=== PATIENT | female | born 1980 | race Two or more races ===

== ENCOUNTER 2023-07-16 14:47 | Inpatient (IN) | payer OTHER, SELFPAY ==
--- NOTE | ~2023-07-16 | MR_ITS ---
EXAMINATION: MR BRAIN WITHOUT AND WITH CONTRAST CLINICAL INFORMATION: MS flare. COMPARISON: None available. TECHNIQUE: Multiplanar, multisequence imaging of the brain was performed before and after the intravenous administration of 9 mL of Gadavist. FINDINGS: There are numerous demyelinating lesions throughout the brain parenchyma. Patchy and confluent lesions with T2 hyperintense signal abnormality are present in the periventricular white matter of both cerebral hemispheres. There are chronic T1 hypointense lesions along the callosal-septal interface posteriorly, best seen on sagittal imaging. A 1.4 cm T2 hyperintense lesion in the left frontal white matter demonstrates mild reduced diffusivity, though without corresponding enhancement. An additional smaller 0.6 cm lesion demonstrates reduced diffusivity as well. There is a third 0.7 cm lesion at the interface between the lateral zuleima and right middle cerebellar peduncle with restricted diffusion, but no associated enhancement. There is a small 0.7 x 0.3 cm linear enhancing lesion in the left frontal white matter at the level of the roofs of the lateral ventricles. A second 0.5 x 0.3 cm enhancing lesion is visible slightly more inferiorly in the left frontal white matter as well. There are scattered nonenhancing lesions in the left cerebellar white matter, in the superior cerebellar peduncles, and elsewhere in the frontoparietal white matter of both cerebral hemispheres. A small nonenhancing lesion is also visible in the mesial left temporal lobe. No diffusion abnormalities are identified to suggest an acute infarct. The ventricles are normal in size. No mass effect or midline shift is seen. No extra-axial fluid collections are seen. There is no abnormal leptomeningeal enhancement. The gradient refocused acquisition is normal. The craniovertebral junction and marrow signal are normal. The major intracranial flow voids at the level of the eagle of [place] are preserved. The dural venous sinus flow voids are maintained. The mastoid air cells are well aerated. There is mucosal thickening along the floor of the right maxillary antrum. MR/MR head/brain wo/w con IMPRESSION: Approximately two subcentimeter enhancing lesions in the left frontal white matter, consistent with active inflammation. Two additional lesions in the left frontal white matter and a solitary subcentimeter lesion in the right middle cerebellar peduncle, all of which demonstrate reduced diffusivity and are indicative for acute inflammatory lesions. Numerous scattered nonenhancing lesions throughout the brain parenchyma as described.
--- NOTE | ~2023-07-16 | CT_ITS ---
EXAMINATION: CT HEAD WITHOUT CONTRAST CLINICAL INFORMATION: Blurry vision, dizziness COMPARISON: None available. TECHNIQUE: Contiguous axial imaging was performed from the skull base to vertex without intravenous administration of contrast. This CT examination was performed using dose optimization techniques as appropriate, variously including the following: *Automated exposure control *Adjustment of mA and/or kV according to patient size (this includes techniques or standardized protocols for targeted exams where dose is matched to indication/reason for exam; i.e. extremities or head) *Use of iterative reconstruction technique DLP: 646 mGy-cm FINDINGS: There is no evidence of acute intracranial hemorrhage or edematous territorial infarction. No abnormal mass effect or midline shift is seen. Valentine to white matter differentiation is well preserved. No abnormal extra-axial fluid collections are identified. The ventricles are normal in size. No abnormal attenuation in the brain parenchyma. No acute calvarial fracture.. Paranasal sinuses and mastoid air cells are well-aerated. CT/CT head/brain wo IV con IMPRESSION: No CT evidence of acute intracranial hemorrhage or edematous territorial infarction.
[2023-07-16 15:24] VITALS: BP 149/78; PULSE 96; RESP 14; TEMP 36.9; O2SAT 98; BMI 29.3
--- NOTE | 2023-07-16 15:27 | ED_ITS ---
HPI - General Adult General Chief complaint: Eye Problems Stated complaint: MS flare up Time Seen by Provider: 07/16/23 18:46 Source: patient Mode of arrival: ambulatory Limitations: no limitations History of Present Illness HPI narrative: Patient's history of multiple sclerosis 2016 on Tecfidera 240 mg p.o. every other day moved to [place] from [place] does not have any PCP or neurologist , comes here for last 2 weeks with strange vision changes in the left eye sees double when she look all the way to the left also feeling that her gait is more unsteady than before. No loss of vision focal deficits no significant headache no fever no chills patient had last MRI was 2018 at that time patient was prescribed prednisone Related Data Allergies Allergy/AdvReac Type Severity Reaction Status Date / Time Unable to Assess Allergy Verified 07/16/23 15:29 Review of Systems 2 Review of Systems: Yes all other systems are reviewed and are negative PMFSH Past Medical History Medical History (Updated 07/17/23 @ 01:19 by Charles Bowen MD) Multiple sclerosis Social History Social History Advance Directives: No Advance Directives Information Provided: No Do you have a plan to hurt others: No Plan Physical Exam ED Vital Signs: Vital Signs - 24 hr 07/16/23 15:24 07/16/23 18:00 07/16/23 21:50 Temperature 98.4 F 98.3 F 98.4 F Pulse Rate 96 82 72 Respiratory Rate 14 19 16 Blood Pressure 149/78 H 152/79 H 135/65 Pulse Oximetry 98 100 99 Oxygen Delivery Method Room Air Room Air Room Air 07/17/23 00:02 Temperature 98.4 F Pulse Rate 70 Respiratory Rate 16 Blood Pressure 132/57 L Pulse Oximetry 96 Oxygen Delivery Method Room Air BMI result Body Mass Index 29.3 Appearance: Alert. Oriented X3. No acute distress. Eyes: PERRLA, No Nystagmus diplopia on left gaze visual hawkins normal ENT: Pharynx normal. Oral Mucosa moist Neck: Normal inspection. Neck supple. CVS: Normal heart rate and rhythm. Pulses normal. Respiratory: No respiratory distress. Equal air entry bilateral, no wheezing/rales/rhonchi Abdomen: Soft and nontender. Bowel sounds are present, no mass palpable, no CVA tenderness Skin: Skin warm and dry. Normal skin color. Normal skin turgor. Extremities: No lower extremity edema. No calf tenderness Neuro: Oriented X 3. No motor deficit. Patchy sensory deficit lower extremities unsteady gait No cerebellar signs , cranial nerves II-XII intact Course Course Course Narrative: RME performed by Ivon Ji PA-C. Patient is a 43 year old assigned female at presenting to the emergency department with increased blurry vision. Patient states that she has a history of MS and is on medication for it but over the last week she has been having increased blurry vision / trouble focusing on things. Patient is new to the area from [facility] and does not have a neurologist or PCP but is still taking her MS medication. Detailed physical exam and review of systems are deferred to the steel tester. EKG, labs, imaging, and swabs ordered. Patient placed back in the waiting room pending room availability and results. Medications Administered Generic Name Dose Route Start Last Admin Trade Name Freq PRN Reason Stop Dose Admin Nicotine Polacrilex 2 mg 07/16/23 23:35 07/16/23 23:56 Nicotine Polacrilex 2 Mg Gum BUCCAL 2 mg Q2H PRN Administration Nicotine Cravings Discontinued Medications Generic Name Dose Route Start Last Admin Trade Name Freq PRN Reason Stop Dose Admin Gadobutrol 10 ml 07/16/23 21:28 07/16/23 21:30 Gadobutrol 10 Ml Vial IVPUSH 07/16/23 21:29 9 ml ONCE ONE Administration Methylprednisolone Sodium 66 mls @ 66 mls/hr 07/16/23 23:06 07/17/23 00:59 Succinate 1,000 mg/ Sodium IV 07/17/23 00:05 Infused Chloride ONCE ONE Infusion Medical Decision Making Medical Decision Making [facility] Narrative: Patient's history of multiple sclerosis with multiple acute inflammatory lesions MRI with visual changes and worsening of the gait will start on dose of 1000 mg of Solu-Medrol. Case discussed Dr. Rosenthal will follow the patient the floor Differential Diagnosis Differential Diagnoses: The differential diagnosis associated with the presentation includes CVA/MS/brain tumor Admission/Observation Consideration of admission/observation: Escalation of care including admission/observation considered Consult Healthcare Provider Management of the patient was discussed with: Hospitalist Lab Data [facility] Lab Attestation statement: I reviewed the patient's lab results. 07/16/23 16:08 07/16/23 16:08 Labs: Lab Results 07/16/23 07/16/23 Range/Units 16:08 19:13 WBC 5.2 (4.8-10.8) X10*3/uL RBC 4.48 (4.20-5.50) X10*6/uL Hgb 14.5 (12.0-16.0) g/dl Hct 41.1 (37.0-47.0) % MCV 91.7 (80.0-98.0) fL MCH 32.4 (27.0-33.0) pg MCHC 35.3 H (31.0-35.0) g/dl RDW 12.4 (11.0-16.0) % Plt Count 188 (160-400) X10*3/uL MPV 11.1 (9.4-12.3) fL Immature Gran % (Auto) 0.4 (0.0-0.4) % Neut % (Auto) 81.6 H (45-73) % Lymph % (Auto) 9.0 L (20-40) % Christian % (Auto) 6.7 (2-11) % Eos % (Auto) 1.7 (0-4) % Baso % (Auto) 0.6 (0-2) % Lymph # (Auto) 0.5 L (1.2-4.9) X10*3/uL Christian # (Auto) 0.4 (0.1-1.2) X10*3/uL Eos # (Auto) 0.1 (0.0-0.4) X10*3/uL Baso # (Auto) 0.0 (0.0-0.2) X10*3/uL Abs Immat Gran (auto) 0.02 (0.00-0.03) X10*3/uL Absolute Neuts (auto) 4.3 (2.0-8.3) x10*3/uL Absolute Nucleated RBC 0.000 (0.0-0.012) X10*3/uL Nucleated RBC % (auto) 0.0 (0.0-0.2) /100WBC PT 12.3 (11.1-13.3) SEC INR 1.0 (0.9-1.1) APTT 28.5 (26.0-36.8) SEC Sodium 141 (135-145) mmol/L Potassium 4.7 (3.3-5.1) mmol/L Chloride 108 (96-108) mmol/L Carbon Dioxide 25 (22-29) mmol/L Anion Gap 13 (12-20) BUN 10 (9-16) mg/dL Creatinine 0.93 (0.5-1.4) mg/dL Estim Creat Clear Calc 93.2 Estimated GFR > 60 Random Glucose 90 (60-115) mg/dL Calcium 9.7 (8.4-10.2) mg/dL Magnesium 2.3 (1.6-2.6) mg/dL Total Bilirubin 0.6 (0.0-1.0) mg/dL AST 11 (5-31) U/L ALT 10 (0-31) U/L Alkaline Phosphatase 89 (39-117) U/L C-Reactive Protein 0.16 (< or = 0.50) mg/dL Total Protein 7.5 (6.5-8.0) g/dL Albumin 4.3 (3.5-5.0) g/dL Urine Color Yellow Urine Appearance Clear Urine pH 6.5 (5.0-9.0) Ur Specific [place] <= 1.005 (1.005-1.025) Urine Protein Negative (Neg-Trace) mg/dL Urine Glucose (UA) Negative (Negative) mg/dL Urine Ketones Negative (Negative) mg/dL Urine Blood Large (3+) H (Negative) Urine Nitrite Negative (Negative) Ur Leukocyte Esterase Trace H (Negative) Urine RBC 3-5 H (0-2) /HPF Urine WBC 0-5 (0-5) /HPF Ur Squamous Epith Cells 3-5 (0-2) /HPF Urine Bacteria None Seen (None Seen) Hyaline Casts 0-2 (0-2) /LPF Influenza Type A (PCR) NEGATIVE (Negative) Influenza Type B (PCR) NEGATIVE (Negative) RSV RNA Qual (PCR) NEGATIVE (Negative) SARS-CoV-2 RNA (RT-PCR) NEGATIVE (Negative) Radiology Impression Discussion of test interpretation with radiology: I have reviewed the radiologist's reading. Radiologist Impression: MR/MR head/brain wo/w con IMPRESSION: Approximately two subcentimeter enhancing lesions in the left frontal white matter, consistent with active inflammation. Two additional lesions in the left frontal white matter and a solitary subcentimeter lesion in the right middle cerebellar peduncle, all of which demonstrate reduced diffusivity and are indicative for acute inflammatory lesions. Numerous scattered nonenhancing lesions throughout the brain parenchyma as descr Discharge Plan Discharge Clinical Impression: Multiple sclerosis exacerbation Patient Disposition: Admitted As Inpatient Print Language: Arabic
[2023-07-16 16:13] LABS: MANUAL DIFF FLAG NO
[2023-07-16 16:18] LABS: Basophils Percent Auto 0.6 % (0-2); Eosinophils Absolute Auto 0.1 X10*3/uL (0.0-0.4); Eosinophils Percent Auto 1.7 % (0-4); Hematocrit 41.1 % (37.0-47.0); Hemoglobin 14.5 g/dl (12.0-16.0); Imm Gran Abs Auto 0.02 X10*3/uL (0.00-0.03); Imm Gran Pct Auto 0.4 % (0.0-0.4); Lymphocytes Absolute Auto 0.5 X10*3/uL (1.2-4.9); Mean Corpuscular HGB Conc 35.3 g/dl (31.0-35.0); Mean Corpuscular Hemoglobin 32.4 pg (27.0-33.0); Mean Corpuscular Volume 91.7 fL (80.0-98.0); Mean Platelet Volume 11.1 fL (9.4-12.3); Monocytes Absolute Auto 0.4 X10*3/uL (0.1-1.2); Monocytes Percent Auto 6.7 % (2-11); Neutrophils Absolute Auto 4.3 x10*3/uL (2.0-8.3); Neutrophils Percent Auto 81.6 % (45-73); Platelet Count 188 X10*3/uL (160-400); Red Blood Count 4.48 X10*6/uL (4.20-5.50); Red Cell Distribution Width 12.4 % (11.0-16.0); White Blood Count 5.2 X10*3/uL (4.8-10.8)
[2023-07-16 16:19] LABS: Prothrombin Time 12.3 SEC (11.1-13.3)
[2023-07-16 16:22] LABS: Partial Thromboplastin Time 28.5 SEC (26.0-36.8)
[2023-07-16 16:29] LABS: Alanine Aminotransferase 10 U/L (0-31); Albumin Level 4.3 g/dL (3.5-5.0); Alkaline Phosphatase 89 U/L (39-117); Anion Gap 13 (12-20); Aspartate Amino Transferase 11 U/L (5-31); Bilirubin Total 0.6 mg/dL (0.0-1.0); Blood Urea Nitrogen 10 mg/dL (9-16); Calcium 9.7 mg/dL (8.4-10.2); Carbon Dioxide 25 mmol/L (22-29); Chloride 108 mmol/L (96-108); Creatinine Clr Calc Pharmacy 93.2; Estimated Glomerular Filt Rate > 60; Glucose Random 90 mg/dL (60-115); Magnesium 2.3 mg/dL (1.6-2.6); Potassium 4.7 mmol/L (3.3-5.1); Sodium 141 mmol/L (135-145); Total Protein 7.5 g/dL (6.5-8.0)
[2023-07-16 17:02] LABS: Influenza A PCR NEGATIVE (Negative); Influenza B PCR NEGATIVE (Negative); Resp Syncy Virus RNA Qual PCR NEGATIVE (Negative); SARS COV2 PCR INHOUSE NEGATIVE (Negative)
[2023-07-16 18:00] VITALS: BP 152/79; PULSE 82; RESP 19; TEMP 36.8; O2SAT 100
[2023-07-16 19:28] LABS: Appearance Urine Clear; Color Urine Yellow; Glucose Urine UA Negative (Negative); Leukocyte Esterase Urine Trace (Negative); Nitrite Urine Negative (Negative); PH 6.5 (5.0-9.0); Specific Gravity - Urine <= 1.005 (1.005-1.025); UMIC TRIGGER UACC YES; Urine Blood Large (3+) (Negative); Urine Ketones Negative (Negative); Urine Protein Negative (Neg-Trace)
[2023-07-16 19:45] LABS: Bacteria Urine None Seen (None Seen); Hyaline Casts Urine 0-2 /LPF (0-2); WBC Urine 0-5 /HPF (0-5)
[2023-07-16 20:03] LABS: C Reactive Protein 0.16 mg/dL (< or = 0.50)
--- NOTE | 2023-07-16 20:29 | PC.NURSE ---
pt to MRI with fire alarm technician
[2023-07-16] MEDS: gadobutroL 10 ML VIAL IVPUSH (21:30)
--- NOTE | 2023-07-16 21:47 | PC.NURSE ---
Pt back from MRI at this time.
[2023-07-16 21:50] VITALS: BP 135/65; PULSE 72; RESP 16; TEMP 36.9; O2SAT 99
[2023-07-16] MEDS: Nicotine Polacrilex 2 MG GUM BUCCAL (23:56)
[2023-07-16] MEDS: methylPREDNISolone Sod Succ 1,000 MG in 0.9 % Sodium Chloride 50 ML 66 MG IV (23:56)
--- NOTE | 2023-07-16 23:56 | PC.NURSE ---
Solumedrol infusion initiated at this time. Pt given nicotine gum, toiletries per request. Denies any other needs at this time.
[2023-07-17 00:02] VITALS: BP 132/57; PULSE 70; RESP 16; TEMP 36.9; O2SAT 96
--- NOTE | 2023-07-17 01:02 | PC.NURSE ---
Solumedrol infusion complete at this time. Pt states she feels her vision is better at this time. Denies any other needs currently.
[2023-07-17] MEDS: Ibuprofen 600 MG TABLET PO ×2 (01:54→18:33)
[2023-07-17 02:41] VITALS: BP 126/75; PULSE 85; RESP 16; TEMP 36.9; O2SAT 96
--- NOTE | 2023-07-17 04:23 | PC.NURSE ---
Pt requesting to wear her own clothes instead of hospital gown, per Dr. Steve Flores, she is okay to wear her own clothing while in the hospital. Pt denies any other needs at this time.
[2023-07-17 06:10] VITALS: BP 135/75; PULSE 75; RESP 16; TEMP 36.9; O2SAT 97
--- NOTE | 2023-07-17 06:18 | PM.IMHP ---
History of Present Illness Date of Service: 07/17/23 Attending physician on admission: Behzad Flores Chief Complaint: Dizziness, visual issues Shanika Hinds is a very pleasant 43 years old woman with past medical history significant for MS diagnosed in 2016 presents to the emergency department complaining of acute onset of dizziness and feeling off balance associated with blindness in the peripheral area of her vision. Denied any associated headache, nausea or vomiting. She also denied numbness, focal weakness or walking difficulty. Denied any cardiopulmonary, gastrointestinal or genitourinary symptoms. She has been taking dimethyl fumarate (Tecfidera) 240 mg PO every other day for MS; instead of 240 mg p.o. b.i.d. (because her LFTs were elevated). She vapes. Denies tobacco smoking, alcohol abuse or illicit drug use. In the ED, she was found to have normal vital signs. Blood workup including CBC and CMP are unremarkable. Viral testing for COVID-19, RSV and influenza is negative. She underwent a head CT scan that showed no acute intracranial abnormalities. Brain MRI showed and has a lesions in the left frontal white matter and right middle cerebral parenchymal lesions consistent with acute inflammation. ED tx: Solu-Medrol 1 g IV. Ibuprofen 600 mg PO Review of Systems Review of Systems: All 12 systems were reviewed and normal except as noted in HPI. [facility] Medical History (Updated 07/17/23 @ 01:19 by Charles Bowen MD) Multiple sclerosis Social History Advance Directives: No Advance Directives Information Provided: No Do you have a plan to hurt others: No Plan Meds Allergies Allergy/AdvReac Type Severity Reaction Status Date / Time Unable to Assess Allergy Verified 07/16/23 15:29 Active Medications: Current Medications Methylprednisolone Sodium Succinate (Methylprednisolone Sod Succ 125 Mg/2 Ml Vial) 1,000 mg IVPUSH DAILY [facility] Nicotine Polacrilex (Nicotine Polacrilex 2 Mg Gum) 2 mg BUCCAL Q2H PRN PRN Reason: Nicotine Cravings Last Admin: 07/16/23 23:56 Dose: 2 mg Sodium Chloride (0.9 % Sodium Chloride Flush 3 Ml Syringe) 3 ml IVFLUSH QSHIFT [facility] Home meds: Dimethyl fumarate (Tecfidera) 240 mg PO every other day Oral contraception Physical Exam Vital Signs and Narrative: Vital Signs: Last Vital Signs Temp 98.5 F 07/17/23 06:10 Pulse 75 07/17/23 06:10 Resp 16 07/17/23 06:10 BP 135/75 07/17/23 06:10 Pulse Ox 97 07/17/23 06:10 O2 Del Method Room Air 07/17/23 06:10 BMI result Body Mass Index 29.3 Constitutional - Awake and Alert, No apparent distress. HEENT - PERRLA, EOMI Heart - S1S2, RRR. Lungs - Normal lung expansion, Normal respiratory effort, No respiratory distress, CTA bilaterally Abdomen - NT / ND; +BS; No rebound or guarding Extremities - No calf tenderness bilaterally, no swelling Musculoskeletal - Normal inspection, normal ROM Skin - Warm/Dry Neurological - Alert & oriented x3, CN II-XII in tact, 5/5 strength BUE and BLE Psychological - Appropriate affect Results Labs 07/16/23 16:08 07/16/23 16:08 Labs: Laboratory Results - last 24 hr 07/16/23 07/16/23 16:08 19:13 MCV 91.7 MCH 32.4 MCHC 35.3 H RDW 12.4 Plt Count 188 MPV 11.1 Immature Gran % (Auto) 0.4 Neut % (Auto) 81.6 H Lymph % (Auto) 9.0 L [place] % (Auto) 6.7 Eos % (Auto) 1.7 Baso % (Auto) 0.6 Lymph # (Auto) 0.5 L [place] # (Auto) 0.4 Eos # (Auto) 0.1 Baso # (Auto) 0.0 Abs Immat Gran (auto) 0.02 Absolute Neuts (auto) 4.3 Absolute Nucleated RBC 0.000 Nucleated RBC % (auto) 0.0 PT 12.3 INR 1.0 APTT 28.5 Anion Gap 13 Estim Creat Clear Calc 93.2 Estimated GFR > 60 Random Glucose 90 Calcium 9.7 Magnesium 2.3 Total Bilirubin 0.6 AST 11 ALT 10 Alkaline Phosphatase 89 C-Reactive Protein 0.16 Total Protein 7.5 Albumin 4.3 Urine Color Yellow Urine Appearance Clear Urine pH 6.5 Ur Specific [place] <= 1.005 Urine Protein Negative Urine Glucose (UA) Negative Urine Ketones Negative Urine Blood Large (3+) H Urine Nitrite Negative Ur Leukocyte Esterase Trace H Urine RBC 3-5 H Urine WBC 0-5 Ur Squamous Epith Cells 3-5 Urine Bacteria None Seen Hyaline Casts 0-2 Influenza Type A (PCR) NEGATIVE Influenza Type B (PCR) NEGATIVE RSV RNA Qual (PCR) NEGATIVE SARS-CoV-2 RNA (RT-PCR) NEGATIVE Imaging Radiologist's Impressions: Impressions Head CT 07/16/23 16:02 IMPRESSION: No CT evidence of acute intracranial hemorrhage or edematous territorial infarction. Brain MRI 07/16/23 21:40 IMPRESSION: Approximately two subcentimeter enhancing lesions in the left frontal white matter, consistent with active inflammation. Two additional lesions in the left frontal white matter and a solitary subcentimeter lesion in the right middle cerebellar peduncle, all of which demonstrate reduced diffusivity and are indicative for acute inflammatory lesions. Numerous scattered nonenhancing lesions throughout the brain parenchyma as described. Assessment and Plan (1) Multiple sclerosis exacerbation: Status: Acute Plan Shanika Hinds is a 43 y/o woman with PMHx significant for MS diagnosed in 2016 presents with: Multiple sclerosis exacerbation, symptoms improving after IV steroids given. Admit to hospitalist service. Continue Solu-Medrol 1 g IV daily. Neurology consult -case has been discussed with neurologist on-call by ED provider. Code status: Full DVT prophylaxis: Low risk. Early ambulation. Quality Stroke Does the patient have a stroke diagnosis?: No VTE Prior VTE?: No VTE Risk Level:: Medical - low VTE Device Contraindication: Treatment Not Indicated VTE Drug Contraindication: Treatment Not Indicated
[2023-07-17 08:00] VITALS: BP 154/74; PULSE 98; RESP 18; TEMP 36.4; O2SAT 97
[2023-07-17] MEDS: Omeprazole 20 MG CAPSULE.DR PO ×2 (09:50→16:19)
[2023-07-17] MEDS: 0.9 % Sodium Chloride Flush 3 ML SYRINGE IVFLUSH ×3 (09:50→21:20)
--- NOTE | 2023-07-17 09:59 | PHA.MEDREC ---
Addendum entered by Ashley Sadler [facility] 07/17/23 12:19: Received patients own Tecfidera, medication is normally prescribed as BID. Patient is from home so the only way to verify how patient takes it, is to ask. Send up pharmacy data analyst to ask patient again how they take their Tecfidera. Patient stated again that she only takes it every other day and that she took one this in morning (prior to verification of pharmacy). Original Note: Pharmacy Consult ? Medication Reconciliation Pharmacy has completed the medication reconciliation. spoke with patient to confirm medications. She has the Tecfidera with her and reports that she is due for a dose today (takes every other day).
--- NOTE | 2023-07-17 10:00 | P.CNNE_ITS ---
History of Present Illness Data of Consult Service Date: 07/17/23 Primary Care Provider: None Physician HPI Reason for consult: Multiple sclerosis exacerbation 43 years old woman from [place] who has been living here since 2021. She provided her own history stating that she was diagnosed with multiple sclerosis after she had symptoms of right-sided numbness and weakness in 2016 and had investigations of MRI of brain and spinal fluid analysis. She was treated with steroid and then started on Tecfidera, which she has continued to take. But, she has been here for last 2 years without proper access to insurance and medical care and has been using smaller and less frequent does, 1 tablet [id number] instead of 1 twice a day. She came to hospital for symptoms of blurred vision that started few days ago. Vision on both sides of eyes was blurred like tunnel vision. She denied seeing double or having any headache. There was no associated speech or language difficulty or numbness or paralysis. She has felt little unsteady but that she attributed to her knee problem. There was no recent cold or flu-like illness. She a [place] and as applied for immigration and was waiting for her immigration status to clear. Review of Systems 2 Review of Systems: No cold or flu-like illness PMFSH Past Medical History Medical History (Updated 07/17/23 @ 01:19 by Charles Bowen MD) Multiple sclerosis Social History Social History Household Members: Spouse Housing: House Patient Tobacco Use Status: Never used Tobacco Meds Allergies Allergy/AdvReac Type Severity Reaction Status Date / Time Unable to Assess Allergy Verified 07/16/23 15:29 Active Medications: Current Medications Methylprednisolone Sodium Succinate 1,000 mg/ Sodium Chloride 66 mls @ 66 mls/hr IV DAILY [facility] Nicotine Polacrilex (Nicotine Polacrilex 2 Mg Gum) 2 mg BUCCAL Q2H PRN PRN Reason: Nicotine Cravings Last Admin: 07/16/23 23:56 Dose: 2 mg Omeprazole (Omeprazole 20 Mg Capsule.) 20 mg PO BID@0630,1630 [facility] Last Admin: 07/17/23 09:50 Dose: 20 mg Sodium Chloride (0.9 % Sodium Chloride Flush 3 Ml Syringe) 3 ml IVFLUSH QSHIFT [facility] Last Admin: 07/17/23 09:50 Dose: 3 ml Home Medications ?Medication ?Instructions ?Recorded ?Confirmed ?Last Taken ?Type dimethyl fumarate 240 mg 240 mg PO Q OTHER DAY 07/17/23 07/17/23 07/15/23 History capsule,delayed release (Tecfidera) ibuprofen 200 mg tablet 400 - 800 mg PO DAILY PRN 07/17/23 07/17/23 Unknown History headache/migraine norethindrone (contraceptive) 0.35 0.35 mg PO DAILY 07/17/23 07/17/23 07/16/23 History mg tablet (Eileen) Physical Exam 2 Vital Signs: Vital Signs: Last Vital Signs Temp 97.5 F 07/17/23 08:00 Pulse 98 07/17/23 08:00 Resp 18 07/17/23 08:00 BP 154/74 H 07/17/23 08:00 Pulse Ox 97 07/17/23 08:00 O2 Del Method Room Air 07/17/23 08:00 BMI result Body Mass Index 29.3 Neuro: Other: She is alert and awake with normal spontaneity of speech fluency comprehension and affect. Visual hawkins are full. Pupils are about 3-4 mm round reactive to light. Red color perception is same in both eyes. Face is symmetrical. There is no pronator drift. Deep tendon reflexes are trace to 1+ with flexor plantars. She is able to get up and walk around but has difficulty doing tandem gait. Speech is normal. Results Labs 07/16/23 16:08 07/16/23 16:08 Labs: Short CBC 07/16/23 Range/Units 16:08 WBC 5.2 (4.8-10.8) X10*3/uL Hgb 14.5 (12.0-16.0) g/dl Hct 41.1 (37.0-47.0) % Plt Count 188 (160-400) X10*3/uL BMP 07/16/23 16:08 Sodium 141 Potassium 4.7 Chloride 108 Carbon Dioxide 25 BUN 10 Creatinine 0.93 Calcium 9.7 Liver Function 07/16/23 Range/Units 16:08 Total Bilirubin 0.6 (0.0-1.0) mg/dL AST 11 (5-31) U/L ALT 10 (0-31) U/L Alkaline Phosphatase 89 (39-117) U/L Albumin 4.3 (3.5-5.0) g/dL Urine 07/16/23 Range/Units 19:13 Urine Color Yellow Urine Appearance Clear Urine pH 6.5 (5.0-9.0) Ur Specific [place] <= 1.005 (1.005-1.025) Urine Protein Negative (Neg-Trace) mg/dL Urine Glucose (UA) Negative (Negative) mg/dL Head CT revealed multiple areas of hypodensity specially in left cerebellar peduncle in left hemisphere. MRI of brain revealed same lesions and more with some on left side with restricted diffusion. These to lesions are also enhancing with gadolinium. Assessment and Plan (1) Multiple sclerosis exacerbation: Status: Acute Remitting relapsing multiple sclerosis while she is in exacerbation at this time. Unfortunately, she has limited access to medical care and medications. My impression is that she required stronger efficacy drugs, which might be difficult to obtain without proper health insurance. In any case, I recommend treating her with Solu-Medrol 1 g a day for 5 days and then starting her on prednisone taper starting with 60 mg a day and tapering it off in 10-14 days. She has medicine that she obtain from [place], Tecfidera, she should take it 1 twice a day at least until she has proper medical insurance. Procedures Date of Service Date of Service: 07/17/23
--- NOTE | 2023-07-17 10:42 | MHC.CM.PN ---
Patient is from home w/ . Functionally independent. Denies use of DME or services. No PCP. [facility] brochure provided. Patient completed HCP, naming Norbert Adkins as HCA. DP: Goal is home self care, to transport. CM will continue to follow.
[2023-07-17] MEDS: methylPREDNISolone Sod Succ 1,000 MG in 0.9 % Sodium Chloride 50 ML 66 MG IV (10:59)
[2023-07-17] MEDS: Nicotine Polacrilex 2 MG GUM BUCCAL ×3 (12:51→21:16)
--- NOTE | 2023-07-17 13:03 | PM.EVENT ---
Event Note Date of Service: 07/17/23 Event Note: This patient is seen and examined by his hospitalist team this morning, patient seen and examined again. Patient saying neurological symptoms seems to be improving as well as which was symptoms. Physical exam : as h&Pexceptneurological symptoms seems to be improving , assessment and plan coordinated in note, Agree with the plan in addition: continue solumerole 1000mg q day x5 days,then starting her on prednisone taper starting with 60 mg a day and tapering it off in 10-14 days. Time Spent With Patient Time: Total time managing care of this patient today ____ minutes.
[2023-07-17 15:26] VITALS: BP 132/75; PULSE 85; RESP 18; TEMP 36.4; O2SAT 98
[2023-07-17 23:10] VITALS: BP 105/50; PULSE 76; RESP 18; TEMP 36.3; O2SAT 95
[2023-07-18] MEDS: Omeprazole 20 MG CAPSULE.DR PO ×2 (05:50→16:41)
[2023-07-18 08:00] VITALS: BP 125/63; PULSE 63; RESP 18; TEMP 36.3; O2SAT 97
[2023-07-18] MEDS: methylPREDNISolone Sod Succ 1,000 MG in 0.9 % Sodium Chloride 50 ML 66 MG IV (09:18)
[2023-07-18] MEDS: 0.9 % Sodium Chloride Flush 3 ML SYRINGE IVFLUSH ×3 (09:19→21:02)
[2023-07-18] MEDS: NORETHINDRONE 0.35 MG 0.35 EACH PO (09:20)
[2023-07-18] MEDS: Nicotine Polacrilex 2 MG GUM BUCCAL ×4 (09:20→21:02)
--- NOTE | 2023-07-18 13:01 | P.PNIM_ITS ---
Subjective Subjective Date of Service: 07/18/23 Interval History: MS flare Review of Systems feeling much better no new c/o. Physical Exam 2 Vital Signs: Vital Signs: Last Vital Signs Temp 97.3 F 07/18/23 08:00 Pulse 63 07/18/23 08:00 Resp 18 07/18/23 08:00 BP 125/63 07/18/23 08:00 Pulse Ox 97 07/18/23 08:00 O2 Del Method Room Air 07/18/23 08:00 BMI result Body Mass Index 29.3 Appearance: Alert.? Oriented X3.. cvs: rrr, [id number] , no murmur res: clear to auscultation ,no rhonchii or wheezing abd: no rebound or guarding ,nt, bs present. ext pulses present , no cyanosis. neuro: axo3 , nonfocal. Objective Data Active Medications Methylprednisolone Sodium Succinate 1,000 mg/ Sodium Chloride 66 mls @ 66 mls/hr IV DAILY [facility] Last Infusion: 07/18/23 10:21 Dose: Infused Documented By: NARCISA Nicotine Polacrilex (Nicotine Polacrilex 2 Mg Gum) 2 mg BUCCAL Q2H PRN PRN Reason: Nicotine Cravings Last Admin: 07/18/23 12:25 Dose: 2 mg Documented By: NARCISA Pt Own ( Norethindrone ( Contraceptive) [ Eileen] 0.35 Mg Tablet) 0.35 mg PO DAILY [facility] Last Admin: 07/18/23 09:20 Dose: 0.35 mg Documented By: COTEMA Pt Own (Dimethyl Fumarate [Tecfidera] 240 Mg Capsule, Delayed Release(Dr/ 240 mg PO BID [facility] Last Admin: 07/18/23 09:20 Dose: 240 mg Documented By: NARCISA Omeprazole (Omeprazole 20 Mg Capsule.Dr) 20 mg PO BID@0630,1630 [facility] Last Admin: 07/18/23 05:50 Dose: 20 mg Documented By: TOCMARKOS Sodium Chloride (0.9 % Sodium Chloride Flush 3 Ml Syringe) 3 ml IVFLUSH QSHIFT [facility] Last Admin: 07/18/23 09:19 Dose: 3 ml Documented By: COTEMA Labs 07/16/23 16:08 07/16/23 16:08 Assessment and Plan (1) Multiple sclerosis exacerbation: Status: Acute Plan 43 y/o woman with PMHx significant for MS diagnosed in 2016 presents with: Multiple sclerosis exacerbation, symptoms improving after IV steroids given. started Continue Solu-Medrol 1 g IV daily on day 3 . continue solumerole 1000mg q day x5 days,then starting her on prednisone taper starting with 60 mg a day and tapering it off in 10-14 days. Tecfidera, she should take it 1 twice a day at least until she has proper medical insurance. DVT prophylaxis: Low risk. Early ambulation. ongoing inpatient need: MS flare -need Iv solumedrole high dose ,neurological monitering ,will not able to be done in other setting. Quality Stroke Does the patient have a stroke diagnosis?: No VTE Prior VTE?: No VTE Risk Level:: Medical - low VTE Device Contraindication: Treatment Not Indicated VTE Drug Contraindication: Treatment Not Indicated
[2023-07-18 15:34] VITALS: BP 129/64; PULSE 74; RESP 16; TEMP 36.4; O2SAT 97
[2023-07-18 23:21] VITALS: BP 114/58; PULSE 59; RESP 18; TEMP 36.4; O2SAT 96
[2023-07-19] MEDS: Omeprazole 20 MG CAPSULE.DR PO ×2 (06:15→14:54)
[2023-07-19 08:00] VITALS: BP 131/71; PULSE 63; RESP 18; TEMP 36.7; O2SAT 97
[2023-07-19] MEDS: methylPREDNISolone Sod Succ 1,000 MG in 0.9 % Sodium Chloride 50 ML 66 MG IV (08:02)
[2023-07-19] MEDS: 0.9 % Sodium Chloride Flush 3 ML SYRINGE IVFLUSH ×3 (08:02→21:23)
[2023-07-19] MEDS: Nicotine Polacrilex 2 MG GUM BUCCAL ×4 (08:02→21:21)
[2023-07-19] MEDS: NORETHINDRONE 0.35 MG 0.35 EACH PO (08:02)
--- NOTE | 2023-07-19 11:32 | P.PNIM_ITS ---
Subjective Subjective Date of Service: 07/19/23 Interval History: MS flare Review of Systems no new symptoms feelling better Physical Exam 2 Vital Signs: Vital Signs: Last Vital Signs Temp 98.1 F 07/19/23 08:00 Pulse 63 07/19/23 08:00 Resp 18 07/19/23 08:00 BP 131/71 07/19/23 08:00 Pulse Ox 97 07/19/23 08:00 O2 Del Method Room Air 07/19/23 08:00 BMI result Body Mass Index 29.3 Appearance: Alert. Oriented X3.. cvs: rrr, [id number] , no murmur res: clear to auscultation ,no rhonchii or wheezing abd: no rebound or guarding ,nt, bs present. ext pulses present , no cyanosis. neuro: axo3 , nonfocal. Objective Data Active Medications Methylprednisolone Sodium Succinate 1,000 mg/ Sodium Chloride 66 mls @ 66 mls/hr IV DAILY [facility] Last Infusion: 07/19/23 09:06 Dose: Infused Documented By: NARCISA Nicotine Polacrilex (Nicotine Polacrilex 2 Mg Gum) 2 mg BUCCAL Q2H PRN PRN Reason: Nicotine Cravings Last Admin: 07/19/23 08:02 Dose: 2 mg Documented By: NARCISA Pt Own ( Norethindrone ( Contraceptive) [ Eileen] 0.35 Mg Tablet) 0.35 mg PO DAILY [facility] Last Admin: 07/19/23 08:02 Dose: 0.35 mg Documented By: COTPEG Pt Own (Dimethyl Fumarate [Tecfidera] 240 Mg Capsule, Delayed Release(Dr/ 240 mg PO BID [facility] Last Admin: 07/19/23 08:02 Dose: 240 mg Documented By: NARCISA Omeprazole (Omeprazole 20 Mg Capsule.Dr) 20 mg PO BID@0630,1630 [facility] Last Admin: 07/19/23 06:15 Dose: 20 mg Documented By: LYSZ Sodium Chloride (0.9 % Sodium Chloride Flush 3 Ml Syringe) 3 ml IVFLUSH QSHIFT [facility] Last Admin: 07/19/23 08:02 Dose: 3 ml Documented By: COTPEG Labs 07/16/23 16:08 07/16/23 16:08 Assessment and Plan (1) Multiple sclerosis exacerbation: Status: Acute Plan d-3 43 y/o woman with PMHx significant for MS diagnosed in 2016 presents with: Multiple sclerosis exacerbation, symptoms improving after IV steroids given. started Continue Solu-Medrol 1 g IV daily . continue solumerole 1000mg q day x5 days,then starting her on prednisone taper starting with 60 mg a day and tapering it off in 10-14 days. Tecfidera, she should take it 1 twice a day at least until she has proper medical insurance. DVT prophylaxis: Low risk. Early ambulation. ongoing inpatient need: MS flare -need Iv solumedrole high dose ,neurological monitering ,will not able to be done in other setting. Quality Stroke Does the patient have a stroke diagnosis?: No VTE Prior VTE?: No VTE Risk Level:: Medical - low VTE Device Contraindication: Treatment Not Indicated VTE Drug Contraindication: Treatment Not Indicated
[2023-07-19 15:04] VITALS: BP 124/73; PULSE 77; RESP 18; TEMP 36.2; O2SAT 97
[2023-07-19 19:39] VITALS: BP 144/72; PULSE 76; RESP 16; TEMP 36.4; O2SAT 97
[2023-07-19 22:56] VITALS: BP 127/73; PULSE 65; RESP 16; TEMP 36.6; O2SAT 96
[2023-07-20] MEDS: Omeprazole 20 MG CAPSULE.DR PO (06:02)
[2023-07-20 07:47] VITALS: BP 136/73; PULSE 59; RESP 18; TEMP 36.8; O2SAT 95
[2023-07-20] MEDS: NORETHINDRONE 0.35 MG 0.35 EACH PO (08:54)
[2023-07-20] MEDS: Nicotine Polacrilex 2 MG GUM BUCCAL (08:55)
[2023-07-20] MEDS: methylPREDNISolone Sod Succ 1,000 MG in 0.9 % Sodium Chloride 50 ML 66 MG IV (08:55)
[2023-07-20] MEDS: 0.9 % Sodium Chloride Flush 3 ML SYRINGE IVFLUSH (08:55)
--- NOTE | 2023-07-20 11:17 | MHC.CM.PN ---
EMR reviewed. Patient medically cleared for dc home self care. Patient will take shuttle home at 12:15. Shuttle slip provided. Patient, RN and MD aware.
--- NOTE | 2023-07-20 11:20 | PM.DS ---
DS: Providers Provider Date of Service: 07/20/23 Date of admission: 07/17/23 04:44 Date of discharge: 07/20/23 Primary care physician: None Physician Consults: 07/17/23 04:44 Consult to Neurology Routine Consulting Provider: [facility] Reason for consultation: MS flare Has provider been notified: No Attending physician on discharge: Shu Avery Discharging clinician: Shu Avery DS: Diagnosis Discharge Diagnosis (1) Multiple sclerosis exacerbation: Status: Acute DS: Summary Hospital Course Hospital Course: 43 years old woman with past medical history significant for MS diagnosed in 2016 presents to the emergency department complaining of acute onset of dizziness and feeling off balance associated with blindness in the peripheral area of her vision. Denied any associated headache, nausea or vomiting. She also denied numbness, focal weakness or walking difficulty. Denied any cardiopulmonary, gastrointestinal or genitourinary symptoms. She has been taking dimethyl fumarate (Tecfidera) 240 mg PO every other day for MS; instead of 240 mg p.o. b.i.d. (because her LFTs were elevated). She vapes. Denies tobacco smoking, alcohol abuse or illicit drug use. In the ED, she was found to have normal vital signs. Blood workup including CBC and CMP are unremarkable. Viral testing for COVID-19, RSV and influenza is negative. She underwent a head CT scan that showed no acute intracranial abnormalities. Brain MRI showed and has a lesions in the left frontal white matter and right middle cerebral parenchymal lesions consistent with acute inflammation. ED tx: Solu-Medrol 1 g IV. Ibuprofen 600 mg PO. Hospital course: Multiple sclerosis exacerbation, symptoms improving after IV steroids -received iv solumedrole 1 gm x5 days . seems improved. seen by neurology- prednisone taper starting with 60 mg a day and tapering it off in 10-14 days and continue po omeprazole for gi prophylax. continue tecfidera . follow up with pcp and neurology outpatient. plan: prednisone taper starting with 60 mg a day and tapering it off in 10-14 days and continue po omeprazole for gi prophylax. continue tecfidera . follow up with pcp and neurology outpatient. Above management discussed with the patient in detail length she understand and in agreement with the above plan, time spent 50 minutes and 50% time spent on counseling. Time Attestation Total time managing care of this patient today: 40 mintues. Discharge Coordination Time (in mins): 40 min Quality: Safe Use of Opioids Does Pt have an Active Cancer Diagnosis on the Problem List?: No Quality: Stroke Does the patient have a stroke diagnosis?: No Physical Exam Vital Signs: Vital Signs: Last Vital Signs Temp 98.3 F 07/20/23 07:47 Pulse 59 07/20/23 07:47 Resp 18 07/20/23 07:47 BP 136/73 07/20/23 07:47 Pulse Ox 95 07/20/23 07:47 O2 Del Method Room Air 07/20/23 07:47 BMI result Body Mass Index 29.3 Appearance: Alert. Oriented X3. cvs: rrr, [id number] , no murmur res: clear to auscultation ,no rhonchii or wheezing abd: no rebound or guarding ,nt, bs present. ext pulses present , no cyanosis. neuro: axo3 , nonfocal. DS: Data Imaging Chest x-ray: Radiologist's impression: ITS Impressions Head CT 07/16/23 16:02 IMPRESSION: No CT evidence of acute intracranial hemorrhage or edematous territorial infarction. Brain MRI 07/16/23 21:40 IMPRESSION: Approximately two subcentimeter enhancing lesions in the left frontal white matter, consistent with active inflammation. Two additional lesions in the left frontal white matter and a solitary subcentimeter lesion in the right middle cerebellar peduncle, all of which demonstrate reduced diffusivity and are indicative for acute inflammatory lesions. Numerous scattered nonenhancing lesions throughout the brain parenchyma as described. Discharge Plan Discharge Anticipated Discharge Date/Time: 07/20/23 10:49 Patient Disposition: Home, Self-Care Discharge Diagnosis: MS flare Referrals: Amada Rosenthal MD [Physician] - 1 Week Physician,None [Primary Care Provider] - 1 Week Discharge Medications: New omeprazole 20 mg Capsule,Delayed Release(Dr/Ec) 20 mg PO DAILY Qty: 30 0RF prednisone 10 mg tablet See Rx Instructions .ROUTE .COMPLEX Qty: 42 0RF Rx Instructions: see taper instructions- 60 mg po daily for 2days, then prednisone 50 mg po daily for 2 days, then prednisone 40 mg po daily for 2 days, then prednisone 30 mg po daily for 2 days, then prednisone 20 mg po daily for 2 days ,then prednisone 10 mg po dialy for 2day. Continued norethindrone (contraceptive) [Eileen] 0.35 mg tablet 0.35 mg PO DAILY dimethyl fumarate [Tecfidera] 240 mg Capsule,Delayed Release(Dr/Ec) 240 mg PO Q OTHER DAY Held ibuprofen 200 mg Tablet 400 - 800 mg PO DAILY PRN (Reason: headache/migraine) Hold Instructions: Resume on 07/28/23. Discharge Orders: Discharge Order (Routine); Ordered 07/20/23 Ordered By: Shu Avery Diet: Advance to usual diet Activity on Discharge: As tolerated Stand Alone Forms: Patient Portal Discharge page Print Language: Korean Care Plan Goals: Multiple sclerosis exacerbation, symptoms improving after IV steroids -received iv solumedrole 1 gm x5 days . seems improved. seen by neurology- prednisone taper starting with 60 mg a day and tapering it off in 10-14 days and continue po omeprazole for gi prophylax. continue tecfidera . follow up with pcp and neurology outpatient. Health Concerns: as above. Plan of Treatment: as above. Assessment: as above.
== END 2023-07-20 12:13 | disposition home or self-care (01) | DRG 43 ==
LOC: HO.ED 07-17 01:19 → HO.EDOVER 07-17 04:48 → HO.S3 07-17 07:37
PROVIDERS: Physician Assistant Medical; Admitting Provider Internal Medicine; Emergency Provider Internal Medicine; Visit Provider Internal Medicine
DX: G35 Multiple sclerosis (principal); Z20.822 Contact with and (suspected) exposure to COVID-19; Z79.899 Other long term (current) drug therapy
CPT/HCPCS: 0241U; 70450; 70553; 80053; 81001; 83735; 85025; 85610; 85730; 86140; 99285; A9585; J2919

== ENCOUNTER → 2023-07-17 04:44 | Outpatient (BNV) | payer OTHER, SELFPAY | PROVIDERS: Admitting Provider Internal Medicine; Emergency Provider Internal Medicine; Visit Provider Internal Medicine | DX: G35 Multiple sclerosis (principal) | CPT/HCPCS: 99222; 99231; 99232; 99239; 99499 ==

== ENCOUNTER → 2023-07-17 04:44 | Outpatient (BNV) | payer OTHER, SELFPAY | PROVIDERS: Admitting Provider Internal Medicine; Emergency Provider Internal Medicine; Visit Provider Psychiatry & Neurology Neurology | DX: G35 Multiple sclerosis (principal) | CPT/HCPCS: 99222 ==

== ENCOUNTER 2023-08-04 16:04 | Outpatient (REF) | payer OTHER, SELFPAY ==
[2023-08-05 03:23] LABS: Syphilis Screen Nonreactive (Nonreactive)
[2023-08-05 23:19] LABS: Varicella IgG Antibody >4000.00 index
[2023-08-06 22:33] LABS: TS Negative Control Passed; TS Panel A 0; TS Panel B 0; TS Positive Control Passed; TSpotTB Negative (Negative)
== END 2023-08-04 16:05 | disposition home or self-care (01) ==
LOC: HO.LAB 16:04
PROVIDERS: PCP Internal Medicine; Visit Provider Internal Medicine Infectious Disease
DX: Z00.00 Encounter for general adult medical examination without abnormal findings (principal)
CPT/HCPCS: 36415; 86481; 86780; 86787

== ENCOUNTER 2023-08-26 15:54 | Outpatient (REF) | payer OTHER, SELFPAY ==
[2023-08-26 16:27] LABS: MANUAL DIFF FLAG NO
[2023-08-26 17:42] LABS: Basophils Percent Auto 0.8 % (0-2); Eosinophils Percent Auto 0.8 % (0-4); Hematocrit 43.7 % (37.0-47.0); Imm Gran Abs Auto 0.03 X10*3/uL (0.00-0.03); Imm Gran Pct Auto 0.6 % (0.0-0.4); Lymphocytes Absolute Auto 0.5 X10*3/uL (1.2-4.9); Lymphocytes Percent Auto 8.5 % (20-40); Mean Corpuscular HGB Conc 34.3 g/dl (31.0-35.0); Mean Corpuscular Hemoglobin 31.8 pg (27.0-33.0); Mean Corpuscular Volume 92.8 fL (80.0-98.0); Mean Platelet Volume 11.6 fL (9.4-12.3); Monocytes Absolute Auto 0.5 X10*3/uL (0.1-1.2); Monocytes Percent Auto 9.3 % (2-11); Neutrophils Absolute Auto 4.2 x10*3/uL (2.0-8.3); Platelet Count 221 X10*3/uL (160-400); Red Blood Count 4.71 X10*6/uL (4.20-5.50); Red Cell Distribution Width 12.3 % (11.0-16.0); White Blood Count 5.3 X10*3/uL (4.8-10.8)
[2023-08-26 18:32] LABS: Vitamin D 25-OH Total 22.3 ng/mL (>30)
[2023-08-27 18:49] LABS: Rubeola IgG (Measles) >300.00 AU/mL
== END 2023-08-26 15:55 | disposition home or self-care (01) ==
LOC: HO.LAB 15:54
PROVIDERS: Absent Provider Internal Medicine; PCP Internal Medicine; Visit Provider Psychiatry & Neurology Neurology
DX: G35 Multiple sclerosis (principal); Z13.0 Encounter for screening for diseases of the blood and blood-forming organs and certain disorders involving the immune mechanism
CPT/HCPCS: 36415; 82306; 85025; 86765; 86787

== ENCOUNTER 2023-10-02 12:00 | Outpatient (RCR) | payer OTHER, SELFPAY ==
[2023-09-30 10:43] VITALS: BMI 32.9
[2023-09-30 10:45] VITALS: BP 147/79; PULSE 97; RESP 18; TEMP 37.1; O2SAT 97
[2023-09-30] MEDS: methylPREDNISolone Sod Succ 1,000 MG in 0.9 % Sodium Chloride 50 ML 66 MG IV (11:00)
--- NOTE | 2023-09-30 12:06 | HO.INF ---
11:45 AM- PATIENT NOTED TO HAVE RED RASH AREA ON UPPER CHEST ONLY- NO ITCH, NO PAIN, SLIGHTLY WARM TO TOUCH. PATIENT STATES SHE GET THIS ALMOST EVER TIME I TAKE MY TECFIDERA- IT'S A SIDE EFFECT AND IT GOES AWAY WITH IN ABOUT 30- 45 MINUTES. I HAVE BEEN TAKING THIS MED SINCE 2016.
--- NOTE | 2023-09-30 12:38 | HO.INF ---
12:15PM- RASH SUBSIDING, PALE RED IN COLOR, NO ITCH, NO PAIN AND NO WARMTH NOTED.
--- NOTE | 2023-09-30 12:51 | HO.INF ---
12:50PM- RASH AREA PALE PINK IN COLO, DENIES ALL PAIN, ITCH OR WARMTH.
[2023-10-01 10:28] VITALS: BP 140/70; PULSE 102; RESP 18; TEMP 37.1; O2SAT 96
[2023-10-01] MEDS: methylPREDNISolone Sod Succ 1,000 MG in 0.9 % Sodium Chloride 50 ML 66 MG IV (10:40)
[2023-10-02 11:42] VITALS: BP 145/62; PULSE 78; RESP 20; TEMP 37.2; O2SAT 95
[2023-10-02] MEDS: methylPREDNISolone Sod Succ 1,000 MG in 0.9 % Sodium Chloride 50 ML 66 MG IV (12:18)
== END 2023-10-02 14:24 | disposition home or self-care (01) ==
LOC: HO.INF 12:00
PROVIDERS: Visit Provider Psychiatry & Neurology Neurology
DX: G35 Multiple sclerosis (principal)
CPT/HCPCS: 96365; 96366; J2919

== ENCOUNTER 2024-05-19 11:38 | Emergency (ER) | payer OTHER, SELFPAY ==
--- NOTE | ~2024-05-19 | CT_ITS ---
EXAMINATION: CT HEAD WITHOUT IV CONTRAST HISTORY: fall +HS. TECHNIQUE: Unenhanced helical CT of the head was performed per standard departmental protocol. Coronal and sagittal reformats of the head were also evaluated. One or more of the following techniques was used for dose reduction: Automated exposure control, adjustment of the mA and/or kV according to patient size, use of iterative reconstruction technique. DLP: 660.34 mGy-cm COMPARISON: Comparison is made with the prior examination dated 05/16/2023. FINDINGS: BRAIN: Again seen are periventricular white matter hypodensities compatible with the patient's known history of demyelinating disease. There is no mass effect or midline shift. The ventricular system is normal in size and configuration. No intra- or extra-axial fluid collections are identified. SINUSES: There is a polyp versus mucous retention cyst in the right maxillary sinus. The mastoid air cells and middle ear cavities are well pneumatized. ORBITS: The visualized orbits are unremarkable. BONES/SOFT TISSUES: The extracranial soft tissues are unremarkable. The calvarium is intact. No suspicious lytic or sclerotic lesions. CT/CT head/brain wo IV con IMPRESSION: No acute intracranial abnormality. Electronically signed by: Anshu Retana MD 05/19/2024 01:28 PM EDT
--- NOTE | ~2024-05-19 | CT_ITS ---
EXAMINATION: CT CERVICAL SPINE WITHOUT CONTRAST CLINICAL INFORMATION: Status post fall. Headache. COMPARISON: None available. TECHNIQUE: Contiguous axial images through the cervical spine using 3 mm collimation with bone and soft tissue algorithm. Sagittal and coronal reformatted images acquired. This CT examination was performed using dose optimization techniques as appropriate, variously including the following: *Automated exposure control *Adjustment of mA and/or kV according to patient size (this includes techniques or standardized protocols for targeted exams where dose is matched to indication/reason for exam; i.e. extremities or head) *Use of iterative reconstruction technique. DLP: 497.61 mGy centimeter. FINDINGS: Craniocervical junction is intact. C1 is intact. C2 is intact. C3 is intact. C4 is intact. C5 is intact. C6 is intact. C7 is intact. No gross prevertebral compartment hematoma. Marginal osteophyte formation C5-6. Normal alignment between the vertebral bodies and the facet joints. . CT/CT cervical spine wo IV con IMPRESSION: No acute fracture or trauma-related listhesis. Spondylosis C5-6. Fleischner guidelines were followed. Electronically signed by: Sal Leong MD 05/19/2024 01:37 PM EDT
--- NOTE | ~2024-05-19 | XR_ITS ---
EXAMINATION: XR HAND AND WRIST COMPLETE RIGHT HISTORY: pain s/p fall COMPARISON: There are no prior studies available for comparison. FINDINGS: Four views of the right wrist including a scaphoid view are submitted. Osseous mineralization is normal. There is no fracture or dislocation. The joint spaces are preserved. The soft tissues are unremarkable. XR/XR hand wrist RT IMPRESSION: Unremarkable examination of the right wrist. Electronically signed by: Anshu Retana MD 05/19/2024 12:23 PM EDT
--- NOTE | ~2024-05-19 | CT_ITS ---
EXAMINATION: CT FACIAL BONES WITHOUT CONTRAST CLINICAL INFORMATION: Status post fall. Headache. COMPARISON: None available. TECHNIQUE: Contiguous axial images through the maxillofacial bones using 3 mm collimation with bone and soft tissue algorithm. Sagittal and coronal reformatted images acquired. This CT examination was performed using dose optimization techniques as appropriate, variously including the following: *Automated exposure control *Adjustment of mA and/or kV according to patient size (this includes techniques or standardized protocols for targeted exams where dose is matched to indication/reason for exam; i.e. extremities or head) *Use of iterative reconstruction technique. DLP: 379.49 mGy centimeter. FINDINGS: Limited by patient's motion artifact. Acute comminuted cortical disruption, nasal bones. Nasal septum and vomer are intact. Subcutaneous emphysema and calcifications, soft tissue nodes. The orbits are intact. The zygomatic arcs are intact. No hematoma, intraconal or extraconal compartments of the orbits. The eyeballs are intact. Maxillary antra the endplates are intact. Mandible is intact. CT/CT facial bones wo IV con IMPRESSION: Acute comminuted nasal bone fractures with likely associated skin laceration and foreign bodies in the soft tissues nose. Electronically signed by: Sal Leong MD 05/19/2024 01:31 PM EDT
[2024-05-19 11:41] VITALS: BP 133/49; PULSE 95; RESP 16; TEMP 37; O2SAT 100; BMI 33.9
--- NOTE | 2024-05-19 11:46 | ED.FALL ---
HPI - Fall General Chief Complaint: Fall Stated Complaint: FALL Time Seen by Provider: 05/19/24 11:45 Source: patient, RN notes reviewed and old records reviewed Mode of arrival: ambulatory History of Present Illness ED Provider: Brigid Hunt PA-C HPI Narrative: 44-year-old female with a past medical history of MS presenting to the ED complaining of headache and facial laceration s/p mechanical trip and fall [employer]. 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 Reports abrasion to right wrist. Denies symptoms prior to fall including lightheadedness / dizziness. tetanus up-to-date. Denies neck/ back pain, CP/ SOB, nausea /vomiting, vision change or loss Related Data Home Medications ?Medication ?Instructions ?Recorded ?Confirmed dimethyl fumarate 240 mg 240 mg PO Q OTHER DAY 07/17/23 07/17/23 capsule,delayed release (Tecfidera) ibuprofen 200 mg tablet 400 - 800 mg PO DAILY PRN 07/17/23 07/17/23 headache/migraine norethindrone (contraceptive) 0.35 0.35 mg PO DAILY 07/17/23 07/17/23 mg tablet (Eileen) Previous Rx's ?Medication ?Instructions ?Recorded omeprazole 20 mg capsule,delayed 20 mg PO DAILY #30 caps 07/20/23 release prednisone 10 mg tablet See Rx Instructions .Route 07/20/23 .COMPLEX #42 tabs Allergies Allergy/AdvReac Type Severity Reaction Status Date / Time ciprofloxacin Allergy Rash Verified 05/19/24 11:51 diclofenac [From Voltaren] Allergy Rash Verified 05/19/24 11:51 cotrim Allergy Rash Uncoded 07/17/23 12:59 novalgen Allergy Rash Uncoded 07/17/23 13:00 Review of Systems Review of Systems: Yes all other systems are reviewed and are negative Constitutional: Constitutional: Reports as per HPI Neurologic: Denies Abnormal speech present [facility] Past Medical History Attestation statement: The following information was validated with the patient. Source: old records reviewed Medical History Multiple sclerosis Social History Social History Household Members: Spouse Housing: House Patient Tobacco Use Status: Never used Tobacco Advance Directives: No Advance Directives Information Provided: Yes service: No Physical Exam Vital Signs: Vital Signs: Last Vital Signs Temp 98.6 F 05/19/24 11:41 Pulse 95 05/19/24 11:41 Resp 16 05/19/24 11:41 BP 133/49 L 05/19/24 11:41 Pulse Ox 100 05/19/24 11:41 O2 Del Method Room Air 05/19/24 11:41 BMI result Body Mass Index 33.9 Const: General: cooperative, healthy appearing and no acute distress Orientation/consciousness: patient oriented x3 Limitations: no limitations HEENT: Other: + abrasions noted to nose & above lip 1 cm laceration noted to nasal bridge. No intraoral injury appreciated Head: Yes normal to inspection, No Hubbard's sign and No raccoon eyes Ears: hearing grossly normal bilaterally General nose exam: Normal external nose present Face and sinus: Yes laceration Mouth: no drooling Throat: Yes posterior oropharynx normal and Yes uvula midline Eyes: General: appearance normal, both eyes and all related structures Pupils: Equal, round and reactive pupils present EOM: EOMs intact bilaterally Neck: Neck: Yes normal visual inspection and Yes no meningeal signs Resp: Effort & Inspection: normal respiratory effort and no respiratory distress Cardio: Rate: regular rate GI: Inspection: Yes normal to inspection Back/Spine/Pelvis: Other: No midline cervical/thoracic/lumbar spinous tenderness/step-off or deformity Skin: Rashes: no rashes Neuro: General: patient oriented x3, gait normal, tone normal, moves all extremities, no meningeal signs, no focal motor deficits and CN's II-XI intact bilaterally Cranial nerves: Yes CN's II-XII intact bilaterally, Yes Equal, round and reactive pupils present and Yes Bilaterally intact EOM present Cognition (Neuro): normal cognition Speech: No Abnormal speech present Gait exam (Neuro): Normal gait present Motor exam (neuro): 5/5 motor strength present throughout Extrem: Other: right wrist with superficial abrasion to palmar aspect. Nontender. No snuffbox tenderness. Full range of motion intact. NV intact Course Course Course Narrative: XR hand wrist RT IMPRESSION: Unremarkable examination of the right wrist. CT head/brain wo IV con IMPRESSION: No acute intracranial abnormality. CT facial bones wo IV con IMPRESSION: Acute comminuted nasal bone fractures with likely associated skin laceration and foreign bodies in the soft tissues nose. CT cervical spine wo IV con IMPRESSION: No acute fracture or trauma-related listhesis. Spondylosis C5-6. Fleischner guidelines were followed. Results discussed with patient including worrisome signs and symptoms and strict return precautions, and when to return to the emergency department. They verbalized understanding and feel safe for discharge at this time. Medications Administered Discontinued Medications Generic Name Dose Route Start Last Admin Trade Name Naty PRN Reason Stop Dose Admin Lidocaine HCl 5 ml 05/19/24 12:02 05/19/24 12:09 Lidocaine Hcl 1 % Mpf 5 Ml Vial INFILTRATI 05/19/24 12:03 5 ml ONCE ONE Administration Procedures Laceration Laceration 1: Site: face Size (cm): 1 Description: linear Depth: simple, single layer Local Anesthetic: lidocaine 1% Amount of anesthesia used (mL): 1 Pre-repair: wound explored Skin layer closed with: nylon Size (cm): 6-0 Medical Decision Making Medical Decision Making MDM Narrative: 44-year-old female with a past medical history of MS presenting to the ED complaining of headache, facial laceration and right wrist abrasion s/p mechanical trip and fall [employer]. on exam vital signs stable, NAD, nontoxic appearing, physical exam as noted above. No midline spinous tenderness throughout. No focal neuro deficits. Laceration and multiple abrasions noted to face, and abrasion to right wrist. Concern for nasal fracture. Rule out ICH. Low suspicion for intrathoracic / intra-abdominal injury/ bleeding. Unlikely scaphoid fracture Plan: X-ray, head / C-spine / facial bone CT, repair wound. Please refer to course for remaining clinical decision making, interpretation of labs/imaging results, and discussions with consultants and/or family members. Differential Diagnosis Differential Diagnoses: The differential diagnosis associated with the presentation includes As above Admission/Observation Consideration of admission/observation: Escalation of care including admission/observation considered Lab Data [facility] Lab Attestation statement: I reviewed the patient's lab results. Independent Interpretation I performed an independent interpretation of an: Plain X-Ray and CT Scan Radiology Impression Discussion of test interpretation with radiology: I have reviewed the radiologist's reading. External Record Review External record reviewed: Inpatient record, Office record, Outpatient record, Prior outpatient labs, Prior outpatient radiology, Primary care record and Outside ED record Tests considered The following testing was considered but not selected: As above Prescription Management I considered prescription management with: Pain Medication Chronic Conditions Patient?s care impacted by: Other (MS) Social Determinants Patient?s care significantly limited by Social Determinants of Health including: Other Social Determinant of Health Discharge Plan Discharge Clinical Impression: Facial laceration Patient Disposition: Home, Self-Care Additional Instructions: Your wounds were repaired today in the emergency department. Keep dry and clean. You need to return to any emergency department, urgent care, or your PCPs office in 5 days for suture removal Apply bacitracin and or Neosporin daily Once sutures are removed apply anti scar cream like Mederma If area begins look infected, is red, there is drainage, streaking, or you have fever please return to the emergency department Prescriptions: No Action norethindrone (contraceptive) [Eileen] 0.35 mg tablet 0.35 mg PO DAILY dimethyl fumarate [Tecfidera] 240 mg Capsule,Delayed Release(Dr/Ec) 240 mg PO Q OTHER DAY ibuprofen 200 mg Tablet 400 - 800 mg PO DAILY PRN (Reason: headache/migraine) omeprazole 20 mg Capsule,Delayed Release(Dr/Ec) 20 mg PO DAILY Qty: 30 0RF prednisone 10 mg tablet See Rx Instructions .ROUTE .COMPLEX Qty: 42 0RF Rx Instructions: see taper instructions- 60 mg po daily for 2days, then prednisone 50 mg po daily for 2 days, then prednisone 40 mg po daily for 2 days, then prednisone 30 mg po daily for 2 days, then prednisone 20 mg po daily for 2 days ,then prednisone 10 mg po dialy for 2day. Referrals: [facility] [Outside] - 5 days Print Language: Belarusian
[2024-05-19] MEDS: Lidocaine HCl 1 % MPF 5 ML VIAL INFILTRATI (12:09)
[2024-05-19 14:28] VITALS: BP 133/49; PULSE 95; RESP 16; TEMP 37; O2SAT 100
== END 2024-05-19 14:28 | disposition home or self-care (01) ==
PROVIDERS: Emergency Provider Emergency Medicine; PCP Internal Medicine
DX: S01.81XA Laceration without foreign body of other part of head, initial encounter (principal); S60.811A Abrasion of right wrist, initial encounter; W01.0XXA Fall on same level from slipping, tripping and stumbling without subsequent striking against object, initial encounter; G35 Multiple sclerosis; Y93.89 Activity, other specified; Y92.238 Other place in hospital as the place of occurrence of the external cause; Y99.0 Civilian activity done for income or pay
CPT/HCPCS: 12011; 70450; 70486; 72125; 73110; 73130; 99282; 99284; J2003

== ENCOUNTER → 2024-05-19 12:09 | Outpatient (BNV) | payer OTHER, SELFPAY | PROVIDERS: Emergency Provider Emergency Medicine; PCP Internal Medicine; Visit Provider Radiology Diagnostic Radiology | DX: M79.641 Pain in right hand (principal); M25.531 Pain in right wrist; S00.93XA Contusion of unspecified part of head, initial encounter; S02.2XXA Fracture of nasal bones, initial encounter for closed fracture; T17.1XXA Foreign body in nostril, initial encounter | CPT/HCPCS: 70450; 70486; 72125; 73110; 73130 ==

== ENCOUNTER 2024-05-23 09:49 | Outpatient (AMB) | payer OTHER, SELFPAY ==
--- NOTE | 2024-05-23 10:11 | MHC.PC.OV ---
Vital Signs 05/23/24 10:39 Height 5 ft 8 in Weight 218 lb BMI 33.1 BP 120/70 Respiration 14 Pulse 80 Pulse Source Pulse Oximeter Temp 97.6 F Temp Source Temporal Artery Scan Pulse Oximetry (%) 99 Oxygen Delivery Method Room Air Intake Visit Reasons: Broken nose Needs ref ENT Cycle Analyst Required: No Accompanied by: Self / Same As Patient Allergies ciprofloxacin Allergy (Verified 05/23/24 10:11) Rash diclofenac [From Voltaren] Allergy (Verified 05/23/24 10:11) Rash cotrim Allergy (Uncoded 05/23/24 10:11) Rash novalgen Allergy (Uncoded 05/23/24 10:11) Rash Tobacco use date assessed: 05/23/24 Dental Screening Dental Screen Date: 05/23/24 Did you have a dental visit in the last 12 months?: Yes Did you have a dental problem in the last 6 months where you did not have access to dental care?: No [facility] Medical History Multiple sclerosis Family History (Updated 05/23/24 @ 10:47 by BETZAIDA Schroeder) Father Diabetes Penis cancer Mother High blood pressure Colon cancer Social History (Updated 05/23/24 @ 10:48 by BETZAIDA Schroeder) Household Members: Spouse Housing: Apartment Patient Tobacco Use Status: Former Tobacco user e-Cigarette/Vaping Use: Currently Using (daily) service: No Current occupational status: employed Cognitive needs: No Hearing needs: No Vision needs: Yes (rx glasses) Questionnaire PHQ-9 Over the last 2 weeks, how often have you been bothered by any of the following problems? 1. Little interest or pleasure in doing things: not at all 2. Feeling down, depressed, or hopeless: not at all 3. Trouble falling or staying asleep, or sleeping too much: not at all 4. Feeling tired or having little energy: not at all 5. Poor appetite or overeating: not at all 6. Feeling bad about yourself - or that you are a failure or have let yourself or your family down: not at all 7. Trouble concentrating on things, such as reading the newspaper or watching television: not at all 8. Moving or speaking so slowly that other people could have noticed. Or the opposite - being so fidgety or restless that you have been moving around a lot more than usual: not at all 9. Thoughts that you would be better off or of hurting yourself in some way: not at all Total score: 0 Source: Developed by Drs. Anshu Medrano, Padmaja Rodriguez, Gino Ballesteros and colleagues, with an educational crow from [employer]. Thrive Questionnaire Date Thrive assessed: 05/23/24 I am a: Patient What is your living situation today?: I have a steady place to live Within the past 12 months, did the food you bought not last and you didn't have the money to get more?: Never true Within the past 12 months, did you worry whether your food would run out before you got money to buy more?: Never true Do you have trouble paying for medicines?: No Do you have trouble getting transportation to medical appointments?: No Do you have trouble paying your heating and electricity bill?: No Do you have trouble taking care of your child, family member or friend?: No Do you have trouble with day-to-day activities such as bathing, preparing meals, shopping, managing finances, etc.?: No Are you currently unemployed and looking for a job?: No Are you interested in more education?: No Please select the resources that you would like help with: None THRIVE Score: 0 AUDIT C Alcohol Use Questionnaire (AUDIT-C) 1. How often do you have a drink containing alcohol?: Never 3. How often do you have six or more drinks on one occasion?: Never Total Score: 0 NATASHA-7 AMB Questionnaire NATASHA-7 Date NATASHA - 7 assessed: 05/23/24 Feeling nervous, anxious, or on edge: 0 = Not at all Not being able to stop or control worryin = Not at all Worrying too much about different things: 0 = Not at all Trouble relaxin = Not at all Being so restless that it is hard to sit still: 0 = Not at all Becoming easily annoyed or irritable: 0 = Not at all Feeling afraid as if something awful might happen: 0 = Not at all Total NATASHA-7 score (0-4 normal; 5-9 mild; 10-14 moderate; 15-21 severe): 0 Source: Developed by Drs. Anshu Medrano, Padmaja Rodriguez, Gino Ballesteros and colleagues, with an educational rcow from [employer]. Physical exam (Primary Care) Vital Signs: Last Vital Signs Temp 97.6 F 05/23/24 10:39 Pulse 80 05/23/24 10:39 Resp 14 05/23/24 10:39 BP 120/70 05/23/24 10:39 Pulse Ox 99 05/23/24 10:39 Oxygen Delivery Method Room Air 05/23/24 10:39 BMI result Body Mass Index 33.1 Tobacco/Smoking Status: Tobacco use Status Tobacco use date assessed 05/23/24 05/23/24 10:12 Patient Tobacco Use Status Former Tobacco user 05/23/24 10:48 e-Cigarette/Vaping Use Currently Using (daily) 05/23/24 10:48 PHQ-9: PHQ-9 Score PHQ-9: Total score 0 05/23/24 10:48 Thrive Assessment: Date of Thrive Assessment Date Thrive assessed 05/23/24 05/23/24 10:12 Coding Level of Care Code New Pt Level 3 (69455) Complex EM visit Add On G2211 Diagnoses Nasal fracture S02.2XXA Assessment & Plan Assessment & Plan (1) Nasal fracture: Code(s): S02.2XXA - Fracture of nasal bones, initial encounter for closed fracture Plan: CT scan revd. Wound needs suture removal. Will refer to [facility], Ent Referral made Plan History of Present Illness The patient is a 44-year-old female presenting with a nasal fracture and sutures that require removal. The injury was sustained following a fall at a campus crosswalk this past . The patient reports a fracture of the nose, confirmed during an initial consultation following the incident. Sutures were placed at the time of the incident, with advice given to have them removed by tomorrow. During today's discussion, it was noted that the removal of sutures is critical, but resources for removal were unavailable during the visit, directing the patient to a suitable location for this procedure. The ENT evaluation determined no immediate surgery was necessary, and further evaluation with a referral to an ENT specialist was recommended. The patient applies ointment to the affected area. No complications or additional symptoms were identified concerning the injury. 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 - Housing: Lives in [place] Review of Systems - HEENT: Reports nasal fracture after a fall Physical Exam General: Appearance normal, both eyes and all related structures Nutritional Appearance: Well nourished Orientation/consciousness: Patient oriented x3 Limitations: No limitations Head: Small fracture in the nose Neck: Normal visual inspection Chest: Normal palpation of entire chest wall Respiratory: Normal respiratory effort Neurology: Patient oriented x3 Results - Tests and Diagnostics: Confirmed nasal fracture via ENT evaluation Plan I will provide a referral for further evaluation of the nasal fracture by an ENT specialist as immediate surgery is not required. The removal of sutures should occur at a medical facility by tomorrow, given today's inability to proceed with removal. I will arrange for new bandaging and have reassured the patient about a suitable walk-in clinic to manage the removal. Continued application of ointment on the nasal area is advised, supporting adequate healing. Follow-up care post suture removal is essential, and future ENT evaluations will be arranged through the provided referral. Patient was informed and verbally consented to the use of an ambient scribe for clinic note documentation during this visit. Discussion Notes During the consultation, I discussed the management of the nasal fracture and suture removal with the patient. The ENT evaluation indicated that surgical intervention is currently unnecessary, yet further specialist consultation is necessary. I recommended the patient visit a walk-in clinic for suture removal, emphasizing the importance of timely action within the next day. I also addressed work-related inquiries, guiding the patient on where immediate care can be sought. Additionally, I have instructed on continuation of ointment application and planned for a new bandage application as needed. The patient was informed about the referral process and follow-up appointments with an ENT specialist. I will ensure all relevant referrals and instructions are forwarded promptly. Patient Instructions - Visit a walk-in clinic or a suitable medical facility for suture removal by tomorrow. - Continue to apply ointment on the nasal area as instructed. - Follow up with an ENT specialist for further evaluation using the provided referral. - Use the new bandage provided by the nurse as directed. - Seek further assistance from [facility] or another medical resource if needed. Orders: Referrals Ear/Nose/Throat Referral S02.2XXA - Fracture of nasal bones, initial encounter for closed fracture Medications: Discontinued prednisone Discontinued Reason: Patient Completed Course see taper instructions- 60 mg po daily for 2days, then prednisone 50 mg po daily for 2 days, then prednisone 40 mg po daily for 2 days, then prednisone 30 mg po daily for 2 days, then prednisone 20 mg po daily for 2 days ,then prednisone 10 mg po dialy for 2day. 42 tabs 0RF
[2024-05-23 10:39] VITALS: BP 120/70; PULSE 80; RESP 14; TEMP 36.4; O2SAT 99; BMI 33.1
== END 2024-05-23 11:24 | disposition home or self-care (01) ==
PROVIDERS: PCP Internal Medicine; Visit Provider Internal Medicine
DX: S02.2XXA Fracture of nasal bones, initial encounter for closed fracture (principal)

== ENCOUNTER → 2024-05-23 09:49 | Outpatient (BNVA) | payer OTHER, SELFPAY | PROVIDERS: PCP Internal Medicine; Visit Provider Internal Medicine | DX: S02.2XXA Fracture of nasal bones, initial encounter for closed fracture (principal); W18.30XA Fall on same level, unspecified, initial encounter; Y93.9 Activity, unspecified; Y92.219 Unspecified school as the place of occurrence of the external cause; Y99.8 Other external cause status | CPT/HCPCS: 96127; 99202 ==

== ENCOUNTER → 2024-05-24 08:06 | Outpatient (BNVA) | payer OTHER, SELFPAY | PROVIDERS: PCP Internal Medicine | DX: Z13.89 Encounter for screening for other disorder (principal) | CPT/HCPCS: 87070; 99203; 99212 ==

== ENCOUNTER → 2024-05-26 10:16 | Outpatient (BNVA) | payer OTHER, SELFPAY | PROVIDERS: PCP Internal Medicine; Visit Provider Physician Assistant Medical | DX: Z13.89 Encounter for screening for other disorder (principal) | CPT/HCPCS: 99213 ==

== ENCOUNTER 2024-06-28 07:36 | Outpatient (REF) | payer OTHER, SELFPAY ==
[2024-06-28 07:47] LABS: MANUAL DIFF FLAG NO
[2024-06-28 08:25] LABS: Basophils Percent Auto 0.5 % (0-2); Eosinophils Absolute Auto 0.1 X10*3/uL (0.0-0.4); Eosinophils Percent Auto 1.9 % (0-4); Hematocrit 43.5 % (37.0-47.0); Hemoglobin 14.9 g/dl (12.0-16.0); Imm Gran Abs Auto 0.02 X10*3/uL (0.00-0.03); Imm Gran Pct Auto 0.3 % (0.0-0.4); Lymphocytes Absolute Auto 0.4 X10*3/uL (1.2-4.9); Lymphocytes Percent Auto 7.1 % (20-40); Mean Corpuscular HGB Conc 34.3 g/dl (31.0-35.0); Mean Corpuscular Volume 90.6 fL (80.0-98.0); Mean Platelet Volume 11.6 fL (9.4-12.3); Monocytes Absolute Auto 0.3 X10*3/uL (0.1-1.2); Monocytes Percent Auto 5.1 % (2-11); Neutrophils Absolute Auto 5.1 x10*3/uL (2.0-8.3); Neutrophils Percent Auto 85.1 % (45-73); Platelet Count 229 X10*3/uL (160-400); Red Cell Distribution Width 12.1 % (11.0-16.0); White Blood Count 5.9 X10*3/uL (4.8-10.8)
[2024-06-28 09:18] LABS: Alanine Aminotransferase 17 U/L (0-31); Albumin Level 4.4 g/dL (3.5-5.0); Alkaline Phosphatase 102 U/L (39-117); Aspartate Amino Transferase 19 U/L (5-31); Bilirubin Direct 0.2 mg/dL (0.0-0.5); Bilirubin Total 0.8 mg/dL (0.0-1.0); Total Protein 7.4 g/dL (6.5-8.0)
[2024-07-03 19:04] LABS: JCV Antibody INDETERMINATE; JCV Index Value 0.31 index
[2024-07-03 19:19] LABS: JCV Ab Inhibition FINAL RSLT: POSITIVE
== END 2024-06-28 07:37 | disposition home or self-care (01) ==
LOC: HO.LAB 07:36
PROVIDERS: PCP Internal Medicine; Visit Provider Psychiatry & Neurology Neurology
DX: G35 Multiple sclerosis (principal)
CPT/HCPCS: 36415; 80076; 85025; 86711

== ENCOUNTER 2024-10-19 15:29 | Outpatient (AMB) | payer OTHER, SELFPAY ==
--- NOTE | 2024-10-19 15:29 | MHC.PC.OV ---
Vital Signs 10/19/24 15:33 10/19/24 15:39 Weight 93.894 kg BP 156/90 H Blood Pressure Location Lt brachial Position Sitting Respiration 17 Pulse 83 Pulse Source Pulse Oximeter Temp 97.8 F Temp Source Temporal Artery Scan Pulse Oximetry (%) 99 Oxygen Delivery Method Room Air Intake Visit Reasons: Routine - see comments Supervisor Pig Machine Required: No Accompanied by: Self / Same As Patient Allergies ciprofloxacin Allergy (Verified 10/19/24 15:30) Rash diclofenac (From Voltaren) Allergy (Verified 10/19/24 15:30) Rash cotrim Allergy (Uncoded 05/23/24 10:11) Rash novalgen Allergy (Uncoded 05/23/24 10:11) Rash Tobacco use date assessed: 05/23/24 Dental Screening Dental Screen Date: 05/23/24 HPI HPI Comments History of Present Illness Details 44-year-old female with history of multiple sclerosis, Yolande's thyroiditis, GERD, overactive bladder, and obesity presents to the office today for management of chronic conditions and to establish care. Multiple sclerosis-diagnosed years ago in [place]. Now following with Dr. Rosenthal in Neurology. Overall, feels she is doing well. Has required IV Solu-Medrol infusions, most recent hospitalization 07/2023 and has received these in short-stay surgery as well. Compliant with medications Yolande's thyroiditis-has never required medication per report. Does have known history of thyroid nodules as well and mother did have thyroid cancer GERD-controlled with omeprazole Overactive bladder-well controlled with oxybutynin Obesity-current BMI 31, has lost about 14 lb since April. She is very active at her job ([employer]), walking over [id number] steps per day and overall follows a healthy diet Concerns: Left 4th finger pain x 2-3 weeks. No injury since childhood. Initially swollen but has improved. Swelling and pain has happened intermittently over the past few months. Can bend finger, but when bend feels inflamed . Has had numbness in 4th and 5th finger. Works in [employer] and works a lot with her hands with repetitive movements, questions whether the hands are overworked. R elbow pain ongoing 1.5w. No injury, but again has very physical, retative movements with supination/pronation. 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 Also with extension. Pain over lateral epicondyle. No radiation of pain or weakness Health Maintenance: Due for screening mammo [facility] appt scheduled November ROS: General: No fevers, malaise, unintentional weight loss HEENT: No blurred vision, diplopia. No sore throat, nasal congestion, rhinorrhea, sinus pain, ear pain Cardiovascular: No chest pain, palpitations, or leg edema Respiratory: No shortness of breath, wheezing, cough GI: No abdominal pain, nausea, vomiting, diarrhea, constipation, melena, hematochezia : No dysuria, hematuria, increased urinary frequency, decreased urinary output MSK: No myalgia, back pain Neuro: No headaches, weakness, paresthesias Skin: No rashes or lesions EXAM: Constitutional - Awake and Alert, No apparent distress Eyes - PERRL Cardiovascular - S1S2, RRR, No edema Respiratory - Normal lung expansion, Normal respiratory effort, No respiratory distress, CTA bilaterally Extremities - no calf tenderness bilaterally, non pitting swelling LLE, no erythema or warmth MSK - L 4th finger- a boutonniere deformity with tenderness to palpation of the PIP joint with limited ROM, particularly with flexion of the PIP with notable swelling of the joint. Tenderness to palpation of the right lateral epicondyle Skin - Warm/Dry Neurological - Alert & oriented x3 Psychological - Appropriate affect PFSH Medical History (Updated 10/19/24 @ 17:45 by ANIVAL Lim) Thyroid nodule Yloande thyroiditis Obesity GERD (gastroesophageal reflux disease) Overactive bladder Tinnitus Multiple sclerosis Surgical History (Updated 10/19/24 @ 15:54 by ANIVAL Lim) S/P knee surgery Family History (Updated 10/19/24 @ 17:50 by ANIVAL Lim) Father Diabetes Penis cancer Mother High blood pressure Colon cancer, Onset Age: 64 Thyroid cancer Social History (Updated 05/23/24 @ 10:48 by BETZAIDA Schroeder) Household Members: Spouse Housing: Apartment Patient Tobacco Use Status: Former Tobacco user e-Cigarette/Vaping Use: Currently Using (daily) service: No Current occupational status: employed Cognitive needs: No Hearing needs: No Vision needs: Yes (rx glasses) Questionnaire Thrive Questionnaire Date Thrive assessed: 05/23/24 AUDIT C Alcohol Use Questionnaire (AUDIT-C) 1. How often do you have a drink containing alcohol?: Never Total Score: 0 NATASHA-7 AMB Questionnaire NATASHA-7 Date NATASHA - 7 assessed: 05/23/24 Source: Developed by Drs. Anshu Medrano, Padmaja Rodriguez, Gino Ballesteros and colleagues, with an educational crow from [employer]. Physical exam (Primary Care) Vital Signs: Last Vital Signs Temp 97.8 F 10/19/24 15:39 Pulse 83 10/19/24 15:39 Resp 17 10/19/24 15:39 BP 156/90 H 10/19/24 15:39 Pulse Ox 99 10/19/24 15:39 Oxygen Delivery Method Room Air 10/19/24 15:39 Tobacco/Smoking Status: Tobacco use Status Tobacco use date assessed 05/23/24 10/19/24 15:33 Patient Tobacco Use Status Former Tobacco user 10/19/24 15:33 e-Cigarette/Vaping Use Currently Using (daily) 10/19/24 15:33 Thrive Assessment: Date of Thrive Assessment Date Thrive assessed 05/23/24 10/19/24 15:33 Coding Level of Care Code New Pt Level 4 (12192) Complex EM visit Add On G2211 Diagnoses 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 Refer to orthopedic surgery. Can use ibuprofen as needed for pain (2) Yolande thyroiditis: Code(s): E06.3 - Autoimmune thyroiditis Category: Medical Plan: TSH with reflex free T4 ordered. Thyroid peroxidase antibody also ordered (3) Thyroid nodule: Code(s): E04.1 - Nontoxic single thyroid nodule Category: Medical Plan: Thyroid ultrasound ordered. Pending results may consider referral to endocrinology (4) Multiple sclerosis: Code(s): G35 - Multiple sclerosis Category: Medical Plan: Stable. Continue current therapies. Continue following with Neurology (5) Tennis elbow: Code(s): M77.10 - Lateral epicondylitis, unspecified elbow Category: Medical Plan: Recommend ibuprofen as needed as well as ice. Given gentle stretches to perform at home. Can consider referral to physical therapy home exercises are effective (6) Overactive bladder: Code(s): N32.81 - Overactive bladder Category: Medical Plan: Continue oxybutynin (7) Swelling of left lower extremity: Code(s): M79.89 - Other specified soft tissue disorders Category: Medical Plan: Longstanding. Given duration of symptoms and absence have calf tenderness, very low suspicion for DVT. Possibly related to MS versus residual from knee injury s/p arthroscopy. No pitting intima to necessitate diuretics. Recommend compression stockings, leg elevation, low-sodium Plan Follow-up for annual physical exam. Labs to be completed following visit. Referred for screening mammogram. X-ray, ultrasound, referrals disorders Orders: Orders Lipid Panel Today E06.3 - Autoimmune thyroiditis, E66.9 - Obesity, unspecified, G35 - Multiple sclerosis, K21.9 - Gastro-esophageal reflux disease without esophagitis, M77.10 - Lateral epicondylitis, unspecified elbow TSH reflex Free T4 Today E06.3 - Autoimmune thyroiditis, E66.9 - Obesity, unspecified, G35 - Multiple sclerosis, K21.9 - Gastro-esophageal reflux disease without esophagitis, M77.10 - Lateral epicondylitis, unspecified elbow US thyroid Today E04.1 - Nontoxic single thyroid nodule, E06.3 - Autoimmune thyroiditis MM tomosynthesis screening BI Today Z12.31 - Encounter for screening mammogram for malignant neoplasm of breast Basic Metabolic Panel Today E06.3 - Autoimmune thyroiditis, E66.9 - Obesity, unspecified, G35 - Multiple sclerosis, K21.9 - Gastro-esophageal reflux disease without esophagitis, M77.10 - Lateral epicondylitis, unspecified elbow Complete Blood Count Auto Diff Today E06.3 - Autoimmune thyroiditis, E66.9 - Obesity, unspecified, G35 - Multiple sclerosis, K21.9 - Gastro-esophageal reflux disease without esophagitis, M77.10 - Lateral epicondylitis, unspecified elbow Liver Panel Today E06.3 - Autoimmune thyroiditis, E66.9 - Obesity, unspecified, G35 - Multiple sclerosis, K21.9 - Gastro-esophageal reflux disease without esophagitis, M77.10 - Lateral epicondylitis, unspecified elbow Vitamin D 25-OH Total Today E06.3 - Autoimmune thyroiditis, E66.9 - Obesity, unspecified, G35 - Multiple sclerosis, K21.9 - Gastro-esophageal reflux disease without esophagitis, M77.10 - Lateral epicondylitis, unspecified elbow XR finger LT min 2V Today M21.242 - Flexion deformity, left finger joints Thyroid Peroxidase Antibodies Today E06.3 - Autoimmune thyroiditis Referrals Orthopedics Referral M20.022 - Boutonniere deformity of left finger(s) Medications: New ibuprofen 800 mg PO Q8H PRN 30 tabs 0RF pain Patient Instructions: compression stocking 20-30mmHg
[2024-10-19 15:39] VITALS: BP 156/90; PULSE 83; RESP 17; TEMP 36.6; O2SAT 99
== END 2024-10-19 16:29 | disposition home or self-care (01) ==
LOC: HO.HMCHD 15:30
PROVIDERS: PCP Internal Medicine; Visit Provider Physician Assistant
DX: M20.022 Boutonniere deformity of left finger(s) (principal); E06.3 Autoimmune thyroiditis; E04.1 Nontoxic single thyroid nodule; G35 Multiple sclerosis; M77.10 Lateral epicondylitis, unspecified elbow; N32.81 Overactive bladder; M79.89 Other specified soft tissue disorders

== ENCOUNTER 2024-10-20 09:19 | Outpatient (REF) | payer OTHER, SELFPAY ==
--- NOTE | ~2024-10-20 | XR_ITS ---
EXAMINATION: XR FINGER, LEFT CLINICAL INFORMATION: M21.242 - Flexion deformity, left finger joints COMPARISON: None available. TECHNIQUE: PA and oblique and lateral views of the left fourth digit. PA view left hand. FINDINGS: There is a semiflexion position of the proximal interphalangeal joint. There is a subtle semiextent position of the distal interphalangeal joint. No acute cortical disruption. No bony erosions. No soft tissue calcification. No subcutaneous emphysema. XR/XR finger LT min 2V IMPRESSION: Probable combination of Mallet finger and swan neck finger. Electronically signed by: Sal Leong MD 10/20/2024 11:31 AM EDT
== END 2024-10-20 09:20 | disposition home or self-care (01) ==
LOC: HO.XRAY 09:19
PROVIDERS: PCP Physician Assistant; Visit Provider Physician Assistant
DX: M21.242 Flexion deformity, left finger joints (principal)
CPT/HCPCS: 73140

== ENCOUNTER → 2024-10-20 10:58 | Outpatient (BNV) | payer OTHER, SELFPAY | PROVIDERS: PCP Physician Assistant; Visit Provider Radiology Diagnostic Radiology | DX: M21.242 Flexion deformity, left finger joints (principal) | CPT/HCPCS: 73140 ==

== ENCOUNTER 2024-10-21 07:31 | Outpatient (REF) | payer OTHER, SELFPAY ==
[2024-10-21 07:43] LABS: MANUAL DIFF FLAG NO
[2024-10-21 07:52] LABS: Hematocrit 36.9 % (37.0-47.0); Hemoglobin 13.1 g/dl (12.0-16.0); Imm Gran Abs Auto 0.01 X10*3/uL (0.00-0.03); Imm Gran Pct Auto 0.2 % (0.0-0.4); Lymphocytes Absolute Auto 0.4 X10*3/uL (1.2-4.9); Mean Corpuscular HGB Conc 35.5 g/dl (31.0-35.0); Mean Corpuscular Hemoglobin 32.1 pg (27.0-33.0); Mean Corpuscular Volume 90.4 fL (80.0-98.0); NRBC Abs Auto 0.000 X10*3/uL (0.0-0.012); NRBC Pct Auto 0.0 /100WBC (0.0-0.2); Platelet Count 173 X10*3/uL (160-400); Red Blood Count 4.08 X10*6/uL (4.20-5.50); White Blood Count 4.1 X10*3/uL (4.8-10.8)
[2024-10-21 08:25] LABS: Alanine Aminotransferase 16 U/L (0-31); Albumin Level 4.4 g/dL (3.5-5.0); Alkaline Phosphatase 80 U/L (39-117); Anion Gap 11 (12-20); Aspartate Amino Transferase 19 U/L (5-31); Blood Urea Nitrogen 11 mg/dL (9-16); Calcium 9.1 mg/dL (8.4-10.2); Carbon Dioxide 25 mmol/L (22-29); Chloride 106 mmol/L (96-108); Cholesterol 172 mg/dL (<200); Estimated Glomerular Filt Rate > 60; HDL Cholesterol 40 mg/dL (>40); Potassium 3.8 mmol/L (3.3-5.1); Sodium 138 mmol/L (135-145); Total Protein 6.7 g/dL (6.5-8.0); Triglycerides 104 mg/dL (<150)
== END 2024-10-21 07:32 | disposition home or self-care (01) ==
LOC: HO.LAB 07:31
PROVIDERS: PCP Physician Assistant; Visit Provider Physician Assistant
DX: K21.9 Gastro-esophageal reflux disease without esophagitis (principal); G35 Multiple sclerosis; E06.3 Autoimmune thyroiditis; M77.10 Lateral epicondylitis, unspecified elbow; E66.9 Obesity, unspecified
CPT/HCPCS: 36415; 80048; 80061; 80076; 82306; 84443; 85025; 86376

== ENCOUNTER 2024-11-01 | Outpatient (REF) | payer OTHER, SELFPAY ==
--- NOTE | ~2024-11-01 | XR_ITS ---
EXAMINATION: XR HAND, LEFT CLINICAL INFORMATION: M79.642 - Pain in left hand COMPARISON: None available. TECHNIQUE: PA, lateral, and oblique views of the left hand. FINDINGS: Ulnar variance measures -4 mm. Joint spaces are preserved. No erosions are evident. Small marginal osteophytes are present along the distal radioulnar joint. No fractures are seen. 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 Electronically signed by: Efrain Dykes MD 11/01/2024 12:58 PM EDT
== END 2024-11-01 00:01 | disposition home or self-care (01) ==
LOC: HO.HOSX
PROVIDERS: Visit Provider Orthopaedic Surgery
DX: M79.642 Pain in left hand (principal)
CPT/HCPCS: 73130

== ENCOUNTER 2024-11-01 12:46 | Outpatient (AMB) | payer OTHER, SELFPAY ==
[2024-11-01 12:55] VITALS: BMI 32.4
--- NOTE | 2024-11-01 12:55 | MHC.OFFVIS ---
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 Per her PCP OV note from visit on 10/19/34 she has had pain in left hand 4th digit for 2-3 weeks prior to that visit. (4-5 weeks now) Denies injury but recall when she was a kid, her finger was caught on a door and had had deformity in her finger since. She has had swelling however it has improved. The swelling and pain she does have is intermittent over the last few months. She is able to flex her finger, but when she does this she reports it feels inflamed . Has had numbness in 4th and 5th digit of left hand. This patient works a lot with her hands and with repetitive movements. Hx of MS. Last EMG was done in 2016 in [place]. 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 She complains of several months intermittent pain & swelling in her left ring finger, worse when trying to make a fist. She says she woke up ~6 weeks ago with pain, and finds it comes and goes throughout the day. She does not recall any particular injury. Of note, she says she had an initial deformity in this finger since she was a child, following an injury. She did not mention numbness and tingling in her fingers to me, but evidently did mentioned it to Mariaa. She has MS, her last NCS was done in [place] in 2016, no carpal or cubital tunnel Dx at the time. She does see Dr. Rosenthal the neurologist for her MS. She also has right lateral epicondylitis according to her PCP note from 10/19/24 [facility] Medical History (Updated 11/01/24 @ 13:28 by Hayder Cardozo) Thyroid nodule Yolande thyroiditis Obesity GERD (gastroesophageal reflux disease) Overactive bladder Tinnitus Multiple sclerosis Surgical History (Updated 10/19/24 @ 15:54 by ANIVAL Lim) S/P knee surgery Family History (Updated 10/19/24 @ 17:50 by ANIVAL Lim) Father Diabetes Penis cancer Mother High blood pressure Colon cancer, Onset Age: 64 Thyroid cancer Social History (Updated 05/23/24 @ 10:48 by BETZAIDA Schroeder) Household Members: Spouse Housing: Apartment Patient Tobacco Use Status: Former Tobacco user e-Cigarette/Vaping Use: Currently Using (daily) service: No Current occupational status: employed Cognitive needs: No Hearing needs: No Vision needs: Yes (rx glasses) Review of Systems Const All systems reviewed & are unremarkable except as noted in HPI and below Physical Exam Vital Signs: BMI result Body Mass Index 32.4 Const General: cooperative, healthy appearing and no acute distress Orientation/consciousness: patient oriented x3 HEENT Head: Yes normocephalic and Yes atraumatic Eyes EOM: EOMs intact bilaterally Resp Effort & Inspection: normal respiratory effort and able to speak in complete sentences Cardio Jugular venous distension: no JVD Skin General skin exam: turgor normal Rashes: no rashes Neuro General: patient oriented x3 Extrem Other: Evaluation of Left Upper Extremity: The patient is alert, oriented, and in no acute distress Neuro: Median, Ulnar, Radial nerves motor and sensory intact and sensation is normal to the tips of all digits Vascular: Cap refill brisk ROM: She is holding the left ring finger PIP joint in slight flexion, ~20-30 degrees at rest, with full active ROM with encouragement Tightness & pain dorsal aspect of her ring finger when making a fist Most tender over the dorsal aspect of the ring finger PIP joint No tenderness over the volar plate at the PIP joint, or the radial or ulnar collateral ligaments. No pain with resisted finger extension She does not have a Boutonniere deformity of the ring finger Mild hyperextension of the DIP joints of all her fingers RCL & UCL stable No locking or catching Slight inflammation & swelling in the dorsal aspect of the left ring finger PIP joint Radiographs: 3 views of the left hand were taken and viewed by me today in clinic. They show no fractures or dislocations. 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 Left ring finger dorsal PIP joint inflammation Etiology unclear, possible unnoticed injury No evidence of Boutonniere deformity I educated her about this condition I discussed non-operative treatment options I recommend activity modification & Jaun-taping Her middle & ring fingers were Jaun-taped today in clinic, to be worn daily for the next 4-6 weeks She will work on ROM exercises at home, 20X daily She will follow up in 4-6 weeks for a ROM check. He may cancel this if he is doing well 2. Left hand numbness Ulnar nerve distribution No complaints today She has MS and follows with Dr. Rosenthal for this She can discuss any concerns with Dr. Rosenthal 3. Right lateral epicondylitis Not discussed today, we may discuss at a later date Scribed for Yahaira Melton MD by Hayder Cardozo, medical claims examiner, on 11/01/24 at 1:10 PM, EST. Orders: Orders XR hand LT min 3V Today M79.642 - Pain in left hand Coding Level of Care Code New Pt Level 3 (11977) Diagnoses Inflammation of joint of finger of left hand M19.042 Numbness and tingling in left hand R20.0; R20.2 Multiple sclerosis G35
== END 2024-11-01 13:33 | disposition home or self-care (01) ==
LOC: HO.HOS 12:46
PROVIDERS: PCP Physician Assistant; Visit Provider Orthopaedic Surgery
DX: M19.042 Primary osteoarthritis, left hand (principal); R20.0 Anesthesia of skin; R20.2 Paresthesia of skin; G35 Multiple sclerosis
CPT/HCPCS: 99203

== ENCOUNTER → 2024-11-01 12:48 | Outpatient (BNV) | payer OTHER, SELFPAY | PROVIDERS: Visit Provider Radiology Diagnostic Radiology | DX: M79.642 Pain in left hand (principal) | CPT/HCPCS: 73130 ==

== ENCOUNTER 2024-11-10 07:36 | Outpatient (REF) | payer OTHER, SELFPAY | END 2024-11-10 07:37 | disposition home or self-care (01) | LOC: HO.LNP 07:36 | PROVIDERS: PCP Physician Assistant; Visit Provider Obstetrics & Gynecology | DX: Z01.419 Encounter for gynecological examination (general) (routine) without abnormal findings (principal); Z12.11 Encounter for screening for malignant neoplasm of colon | CPT/HCPCS: 87626; 88175 ==

== ENCOUNTER 2024-11-10 07:36 | Outpatient (AMB) | payer OTHER, SELFPAY ==
--- NOTE | 2024-11-10 07:44 | A.OFFVIS_ITS ---
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 No complaints. Last Pap/HPV? Next screening Mammogram is scheduled in 12/24 No previous colonoscopy [facility] Medical History Kidney stone Thyroid nodule Yolande thyroiditis Obesity GERD (gastroesophageal reflux disease) Overactive bladder Tinnitus Multiple sclerosis Surgical History History of cholecystectomy S/P knee surgery Family History Father Diabetes Penis cancer Mother High blood pressure Colon cancer, Onset Age: 64 Thyroid cancer Social History Household Members: Spouse Housing: Apartment Alcohol intake: never Patient Tobacco Use Status: Former Tobacco user Tobacco use type: Cigarette Years Smoked: 15 e-Cigarette/Vaping Use: Currently Using (daily) service: No Current occupational status: employed 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 Sexual orientation: Straight/Heterosexual Gender identity: Female Cognitive needs: No Hearing needs: No Vision needs: Yes (rx glasses) Female Reproductive History Menstrual Age of Menarche: 12 Duration of menses: 6-7 days Date of last menstrual period: 11/07/24 Total pregnancies: 0 Review of Systems Const All systems reviewed & are unremarkable except as noted in HPI and below Card Reports as per HPI Resp Reports as per HPI GI Reports as per HPI and Reports no additional complaints Reports as per HPI Physical Exam Vital Signs: Last Vital Signs BP 142/82 H 11/10/24 07:46 BMI result Body Mass Index 32.7 Const General: cooperative, healthy appearing and comfortable Chest Chest palpation & inspection: normal inspection of the chest and normal palpation of entire chest wall Breast/axilla inspection: normal inspection of the breasts and normal inspection of the axillae Breast/axilla palpation: normal palpation of the breasts, normal palpation of the axillae and no axillary lymphadenopathy Resp Effort & Inspection: normal respiratory effort Auscultation: clear to auscultation bilaterally Percussion: percussion normal Cardio Palpation: normal PMI Rate: regular rate Rhythm: regular rhythm Heart sounds: no murmurs and no rubs Peripheral pulses: Peripheral pulses 2+ throughout GI Inspection: Yes normal to inspection Palpation (GI): Soft to palpation, nontender, no guarding, not rigid and No hepatosplenomegaly present Percussion: Yes normal to percussion Auscultation: normal bowel sounds Rectal Exam - Female: deferred General: Yes bladder normal to palpation External Female Exam: No lesion Speculum Exam - Vagina: normal appearance of the vagina, normal palpation, normal vaginal discharge and not erythematous Speculum Exam - Cervix: normal appearance of the cervix and normal palpation Bimanual exam- vagina & uterus: normal bimanual exam, normal palpation, uterine size normal, bladder normal to palpation, consistency normal and normal palpation Bimanual Exam- Adnexa, other: normal adnexae, no masses and no tenderness Assessment & Plan Assessment & Plan (1) Well woman exam: Code(s): Z01.419 - Encounter for gynecological examination (general) (routine) without abnormal findings Category: Medical Plan: Cotesting done. Mammogram schedule in 12/24. Counseled the patient about the recommended dietary allowance of 1000 mg of Calcium & 600 IU of vitamin D. The patient was referred to GI for screening colonoscopy The patient was instructed to perform monthly self-breast exams and to schedule an annual exam in a year; All questions answered and the patient verbalized understanding. Instructed the patient to schedule annual exam in a year Orders: Referrals Gastroenterology Referral Z12.11 - Encounter for screening for malignant neoplasm of colon Coding Level of Care Code New Pt Prev Care 40-64y(30422) Diagnoses Well woman exam Z01.419
[2024-11-10 07:46] VITALS: BP 142/82; BMI 32.7
== END 2024-11-10 08:09 | disposition home or self-care (01) ==
LOC: HO.HWS 07:36
PROVIDERS: PCP Physician Assistant; Visit Provider Obstetrics & Gynecology
DX: Z01.419 Encounter for gynecological examination (general) (routine) without abnormal findings (principal)
CPT/HCPCS: 99386; 99459

== ENCOUNTER 2024-12-13 13:08 | Outpatient (REF) | payer OTHER, SELFPAY ==
--- NOTE | ~2024-12-13 | US_ITS ---
EXAMINATION: US THYROID HISTORY: E06.3 - Autoimmune thyroiditis TECHNIQUE: Real-time grayscale ultrasound imaging was performed and images were reviewed. COMPARISON: Correlation is made with an unenhanced CT of the cervical spine dated 05/19/2024. FINDINGS: SIZE: The right thyroid lobe measures 5.4 x 1.8 x 1.8 cm. The left thyroid lobe measures 5.8 x 1.9 x 1.8 cm. The isthmus measures 3 mm. FLOW: Flow to the gland is increased. ECHOGENICITY: The echotexture of the gland is heterogeneous. NODULES: There are scattered thyroid nodules as described below: Nodule #: 1 Location: Right upper pole measuring 7 x 4 x 6 mm. Shape: Wider than tall (0 points) Margins: Ill-defined (0 points) Echotexture: Indeterminate (1 point) Composition: Mixed (1 point) Calcifications: None (0 points) Total points: 2 TIRADS: TR2: Not suspicious Nodule #: 2 Location: Lower pole of the right thyroid lobe measuring 6 x 4 x 7 mm. Shape: Wider than tall (0 points) Margins: Smooth (0 points) Echotexture: Hypoechoic (2 points) Composition: Mostly solid (2 points) Calcifications: None (0 points) Total points: 4 TIRADS: TR4: Moderately suspicious. Nodule #: 3 Location: Left isthmus measuring 6 x 3 x 5 mm. Shape: Wider than tall (0 points) Margins: Ill-defined (0 points) Echotexture: Isoechoic (1 point) Composition: Solid (2 points) Calcifications: None (0 points) Total points: 3 TIRADS: TR3: Mildly suspicious. US/US thyroid IMPRESSION: Subcentimeter thyroid nodules as described. None warrant ultrasound guided biopsy or follow. ACR TI-RADS Guidelines TR1 (0 points): Benign. No follow-up or biopsy required TR2 (2 points): Not Suspicious. No biopsy or follow up indicated TR3 (3 points): Mildly Suspicious. FNA if >= 2.5 cm, Follow if >= 1.5 cm TR4 (4-6 points): Moderately Suspicious. FNA if >= 1.5 cm, Follow if >= 1.0 cm TR5 (>=7 points): Highly Suspicious. FNA if >= 1.0 cm, Follow if >= 0.5 cm Electronically signed by: Anshu Retana MD 12/13/2024 02:01 PM EDT
== END 2024-12-13 13:09 | disposition home or self-care (01) ==
LOC: HO.US 13:08
PROVIDERS: PCP Physician Assistant; Visit Provider Physician Assistant
DX: E06.3 Autoimmune thyroiditis (principal); E04.1 Nontoxic single thyroid nodule
CPT/HCPCS: 76536

== ENCOUNTER → 2024-12-13 13:10 | Outpatient (BNV) | payer OTHER, SELFPAY | PROVIDERS: PCP Physician Assistant; Visit Provider Radiology Diagnostic Radiology | DX: E04.2 Nontoxic multinodular goiter (principal) | CPT/HCPCS: 76536 ==

== ENCOUNTER 2024-12-20 15:54 | Outpatient (REF) | payer OTHER, SELFPAY | END 2024-12-20 15:55 | disposition home or self-care (01) | LOC: HO.MAMMO 15:54 | PROVIDERS: PCP Physician Assistant; Visit Provider Physician Assistant | DX: Z12.31 Encounter for screening mammogram for malignant neoplasm of breast (principal) | CPT/HCPCS: 77063; 77067 ==

== ENCOUNTER → 2024-12-20 16:15 | Outpatient (BNV) | payer OTHER, SELFPAY | PROVIDERS: PCP Physician Assistant; Visit Provider Internal Medicine | DX: Z12.31 Encounter for screening mammogram for malignant neoplasm of breast (principal) | CPT/HCPCS: 77063; 77067 ==

== ENCOUNTER 2024-12-21 15:23 | Outpatient (AMB) | payer OTHER, SELFPAY ==
--- NOTE | 2024-12-21 15:31 | A.OFFVIS_ITS ---
Intake Visit Reasons: 6mnth Allergies ciprofloxacin Allergy (Verified 11/10/24 07:47) Rash diclofenac (From Voltaren) Allergy (Verified 11/10/24 07:47) Rash cotrim Allergy (Uncoded 11/10/24 07:47) Rash novalgen Allergy (Uncoded 11/10/24 07:47) Rash HPI Comments Details: 44 years old right-handed woman originally from [place] who is been diagnosed with multiple sclerosis in 2016 in [place] when she presented with left-sided numbness. Diagnoses was made based upon MRI findings and spinal fluid analysis. She was prescribed dimethyl fumarate, which she has been taking. She moved to [facility] in 2021 and did not have medical coverage or a neurologist. She brought Tecfidera tablets from [place] and was taking one pill every other day. She said that this was since 2018 when her liver enzyme level was high and she was told to take this med this way. In July of 2023 she came to [facility] emergency room with worsening symptoms of blurred vision and was diagnosed with an episode of multiple sclerosis exacerbation. Her MRI of brain revealed couple of e nhancing lesions in left frontoparietal areas and otherwise multiple chronic lesions including one in cerebellar peduncle. She is presenting with a need for prescription refills and management of her existing conditions, including migraines and urinary incontinence. The migraines are characterized by episodic ocular discomfort, which she correlates with her medication oxybutynin, known to potentially cause eye discomfort. Despite these symptoms, no recent significant migraines have been reported. The patient uses ibuprofen for headache relief, as she is allergic to other forms of medication. She is compliant with her oxybutynin regimen for urinary incontinence, noting minimal associated side effects and considerable improvement in her condition. Additionally, she manages a vitamin D deficiency, although no details were provided on dosing or response. The patient is physically active, with a routine of walking daily, which she believes contributes to her overall health and vitality. [facility] Medical History Kidney stone Thyroid nodule Yolande thyroiditis Obesity GERD (gastroesophageal reflux disease) Overactive bladder Tinnitus Multiple sclerosis Surgical History History of cholecystectomy S/P knee surgery Family History Father Diabetes Penis cancer Mother High blood pressure Colon cancer, Onset Age: 64 Thyroid cancer Social History Household Members: Spouse Housing: Apartment Alcohol intake: never Patient Tobacco Use Status: Former Tobacco user Tobacco use type: Cigarette Years Smoked: 15 e-Cigarette/Vaping Use: Currently Using (daily) service: No Current occupational status: employed 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 - Ophthalmologic: Reports occasional eye discomfort, possibly dry. - Genitourinary: Notes effective management of urinary incontinence with current medication. - Musculoskeletal: Denies significant weight issues; notes recent weight loss. - Constitutional: Reports general well-being and physical activity. - Cognitive: Denies memory issues. Physical Exam Neuro Other: Mental Status: Alert and oriented to person, place, and time. Normal attention. Normal spontaneous speech, fluency, and comprehension. No obvious issues with mood and memory. Affect is appropriate. Cranial Nerves: CN II: Visual hawkins full to confrontation, visual acuity intact. CN III, IV, : Pupils equal, round, reactive to light and accommodation. Extraocular movements are normal. CN V: Facial sensation is normal. CN VII: Facial movements symmetrical. CN VIII: Hearing intact to bedside conversation is normal. CN IX, X: Palate elevates symmetrically. CN XI: Shoulder shrug and head turn symmetrical. CN XII: Tongue midline without atrophy or fasciculations. Motor: Bulk and tone normal in all extremities. No significant muscle weakness in arms and legs. No drift. Reflexes: Deep tendon reflexes 2+ and symmetric. Plantar response down-going bilaterally. Coordination: [id number] and [id number] testing normal. No dysmetria. Gait and Station: No obvious gait abnormality. No ataxia or instability. Extrapyramidal: Full facial expressions and blinking. No rigidity. Movements are appropriate with no tremor or abnormality. Speech: Normal; no dysarthria or tremor. Assessment & Plan Assessment & Plan (1) Multiple sclerosis: Comment: CT brain WO at [facility] [place] in July 2023: Hypodense lesion in left frontal lobe and left cerebellar peduncle MRI brain WWO at [facility] [place] in July 2023: Left frontal lobe lesions are enhancing, otherwise, mod MS type lesions, mostly on left side. Code(s): G35 - Multiple sclerosis Category: Medical (2) Overactive bladder: Code(s): N32.81 - Overactive bladder Category: Medical (3) Migraine: Code(s): G43.909 - Migraine, unspecified, not intractable, without status migrainosus Category: Medical Qualifiers: Migraine type: without aura Status migrainosus presence: without status migrainosus Intractability: not intractable Qualified Code(s): G43.009 - Migraine without aura, not intractable, without status migrainosus Plan Impression: a: Remitting and replapsing MS b: Spastic bladder c: Migraine Rec: a: Tecfidera 240mg one a day. She has been taking this dose knowing that this is not the standard dose and it may not provide the full benefit as expected from the full dose. b: Oxybutynin 10mg one at night I discussed with the patient the ongoing management of her migraines, which are infrequent and benign, and are managed with ibuprofen given her allergies to other medications. I advised maintaining her current regimen with oxybutynin for urinary incontinence, acknowledging her satisfactory symptom control. We discussed the side effect of ocular discomfort potentially linked to oxybutynin but agreed that the benefits outweigh this minor issue. Regarding her vitamin D deficiency, the current supply remains adequate, and no further intervention is necessary at this time. We also addressed the challenges with the specialty pharmacy regarding medication refills, acknowledging the need for patience and persistence with these protocols. Orders: Orders Complete Blood Count Auto Diff Today G35 - Multiple sclerosis Medications: Refilled cholecalciferol (vitamin D3) 50 mcg PO DAILY 90 caps 1RF Coding Level of Care Code Est Pt Level 4 (71845) Diagnoses Multiple sclerosis G35 Overactive bladder N32.81 Migraine without aura and without status migrainosus, not intractable G43.009 Migraine type: without aura Status migrainosus presence: without status migrainosus Intractability: not intractable
== END 2024-12-21 15:42 | disposition home or self-care (01) ==
LOC: HO.HSM 15:24
PROVIDERS: PCP Internal Medicine; Visit Provider Psychiatry & Neurology Neurology
DX: G35.A Relapsing-remitting multiple sclerosis (principal); N32.81 Overactive bladder; G43.009 Migraine without aura, not intractable, without status migrainosus
CPT/HCPCS: 99214

== ENCOUNTER 2025-01-04 08:43 | Outpatient (AMB) | payer OTHER, SELFPAY ==
--- NOTE | 2025-01-04 08:47 | A.OFFVIS_ITS ---
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 Required: No Information Interpreted: non-clinical & clinical Nursing Technician: Nursing Technician Present (Mayte Davis DREASam) Accompanied by: Self / Same As Patient Allergies ciprofloxacin Allergy (Verified 01/04/25 08:49) Rash diclofenac (From Voltaren) Allergy (Verified 01/04/25 08:49) Rash cotrim Allergy (Uncoded 01/04/25 08:49) Rash novalgen Allergy (Uncoded 01/04/25 08:49) Rash Is last menstrual period known: Yes HPI Comments Details: Presenting for the following abnormal Pap smear: Satisfactory for evaluation, with low grade squamous intraepithelial lesion cannot exclude high-grade squamous intraepithelial lesion. HPV High Risk: Positive HPV Genotyping 16: Negative HPV Genotyping 18: Negative [facility] Medical History Kidney stone Thyroid nodule Yolande thyroiditis Obesity GERD (gastroesophageal reflux disease) Overactive bladder Tinnitus Multiple sclerosis Surgical History History of cholecystectomy S/P knee surgery Family History Father Diabetes Penis cancer Mother High blood pressure Colon cancer, Onset Age: 64 Thyroid cancer Social History Household Members: Spouse Housing: Apartment Alcohol intake: never Patient Tobacco Use Status: Former Tobacco user Tobacco use type: Cigarette Years Smoked: 15 e-Cigarette/Vaping Use: Currently Using (daily) service: No Current occupational status: employed Current [place] [employer] [place] Sexual orientation: Straight/Heterosexual Gender identity: Female Cognitive needs: No Hearing needs: No Vision needs: Yes (rx glasses) Female Reproductive History Menstrual Age of Menarche: 12 Review of Systems Const All systems reviewed & are unremarkable except as noted in HPI and below Reports as per HPI and Reports no additional complaints GI Reports no additional complaints Reports no additional complaints Physical Exam Vital Signs: Last Vital Signs BP 122/80 01/04/25 08:48 BMI result Body Mass Index 32.6 Office Procedures Colposcopy Colposcopy: Pre-Procedure Counseling: Before beginning the procedure, I conducted comprehensive counseling with the patient. We thoroughly discussed the procedure itself, including its details, alternatives, and all associated risks. This included but not limited to the following complications such as bleeding, infection, and injury to the vagina, bladder, and vessels, as well as the potential need for transfusion with all its associated risks. Subsequently, the patient sign the consent. Pap smear result: LSIL can not exclude high-grade TAMANNA/HPV positive. Urine test in office = Negative Procedure: During the procedure, the following steps were performed: A speculum was inserted, and acetic acid was applied. Colposcopy was conducted, allowing visualization of the transformation zone. Acetowhite lesions were identified at the 4+7+11+12+1 o'clock position. Cervical biopsies were obtained from the 4+7+11+12+1 o'clock position, followed by an endocervical curettage (ECC). Vaginoscopy of the upper vagina revealed no evidence of aceto-white lesions. Hemostasis was achieved using Monsel solution, and the patient tolerated the procedure well. Post-Procedure Instructions: The patient was advised to promptly contact the office or the after hours answering service or go to the emergency room if experiencing a temperature exceeding 100.4?F, abdominal pain, nausea/vomiting, or bleeding. Additionally, the patient was instructed to abstain from vaginal intercourse and bathtub use. The patient confirmed understanding of these instructions. Discharge Instructions: The patient was instructed to schedule a follow-up appointment in 2 weeks for further evaluation and management. Please note that this note was generated using a voice recognition program, and errors may have occurred during heel seat fitter machine. [id number] of cervix including upper vagina with biopsy and ECC Procedure code (CPT) selection complete Results AMB Test Urine AMB Test Urine Negative Last Edit by Mayte Davis CMA on 08:58 Assessment & Plan Assessment & Plan (1) LGSIL on Pap smear of cervix: Comment: Can not exclude high-grade TAMANNA, HPV positive Code(s): R87.612 - Low grade squamous intraepithelial lesion on cytologic smear of cervix (LGSIL) Category: Medical Plan: Discussed with the patient the result of her abnormal pap, its significance, risk of progression, persistence, and regression. the false positive/negative rate of a Pap smear as a screening test in detecting cervical cancer and the indication for a diagnostic test -colposcopy, biopsy, endocervical curettage. The patient verbalized understanding and agreed with the plan, all questions answered. Colposcopy, biopsy /ECC done, see procedure note Orders: Orders AMB HCG Urine Test Today Z32.02 - Encounter for test, result negative AMB Colposcopy Today R87.612 - Low grade squamous intraepithelial lesion on cytologic smear of cervix (LGSIL) Coding Level of Care Code Procedure Only Diagnoses LGSIL on Pap smear of cervix R87.612 CPT Codes Colposcopy - CPT: 15454-[id number] of cervix including upper vagina with biopsy and ECC ([id number])
[2025-01-04 08:48] VITALS: BP 122/80; BMI 32.6
== END 2025-01-04 10:01 | disposition home or self-care (01) ==
LOC: HO.HWS 08:44
PROVIDERS: PCP Physician Assistant; Visit Provider Obstetrics & Gynecology
DX: R87.612 Low grade squamous intraepithelial lesion on cytologic smear of cervix (LGSIL) (principal); Z32.02 Encounter for pregnancy test, result negative
CPT/HCPCS: 57454

== ENCOUNTER 2025-01-04 08:43 | Outpatient (REF) | payer OTHER, SELFPAY | END 2025-01-04 08:44 | disposition home or self-care (01) | LOC: HO.LNP 08:43 | PROVIDERS: PCP Physician Assistant; Visit Provider Obstetrics & Gynecology | DX: R87.612 Low grade squamous intraepithelial lesion on cytologic smear of cervix (LGSIL) (principal); Z32.02 Encounter for pregnancy test, result negative | CPT/HCPCS: 57454; 81025; 88305 ==

== ENCOUNTER 2025-02-02 11:52 | Outpatient (AMB) | payer OTHER, SELFPAY ==
--- NOTE | 2025-02-02 11:58 | MHC.OFFVIS ---
Vital Signs 02/02/25 12:02 Height 5 ft 7 in Weight 208 lb BMI 32.6 BP 122/82 Intake Visit Reasons: Colpo Results Application Packager Required: No Information Interpreted: non-clinical & clinical Accompanied by: Self / Same As Patient Allergies ciprofloxacin Allergy (Verified 02/02/25 12:03) Rash diclofenac (From Voltaren) Allergy (Verified 02/02/25 12:03) Rash cotrim Allergy (Uncoded 02/02/25 12:03) Rash novalgen Allergy (Uncoded 02/02/25 12:03) Rash HPI Comments Details: Presenting post colpo for follow-up. The patient is doing well with no complaints. The pathology showed the following: A. Endocervix, curettage: Mildly inflamed endocervical mucosa with reactive changes. B. Cervix, 1 o'clock, biopsy: Inflamed cervical transformation zone mucosa with reactive changes. C. Cervix, 4 o'clock, biopsy: - Low-grade squamous intraepithelial lesion (SEGUN 1). - Endocervical epithelium within normal limits. D. Cervix, 7 o'clock, biopsy: Mildly inflamed endocervical and squamous mucosa with reactive changes. E. Cervix, 11 o'clock, biopsy: Inflamed endocervical and squamous mucosa with reactive changes. F. Cervix, 12 o'clock, biopsy: Inflamed endocervical and squamous mucosa with reactive changes. COMMENT: The findings are concordant with the patient's recent Pap/cytology specimen ([id number]; LSIL cannot rule out HSIL with positive HR HPV) - slide reviewed [facility] Medical History Kidney stone Thyroid nodule Yolande thyroiditis Obesity GERD (gastroesophageal reflux disease) Overactive bladder Tinnitus Multiple sclerosis Surgical History History of cholecystectomy S/P knee surgery Family History Father Diabetes Penis cancer Mother High blood pressure Colon cancer, Onset Age: 64 Thyroid cancer Social History Household Members: Spouse Housing: Apartment Alcohol intake: never Patient Tobacco Use Status: Former Tobacco user Tobacco use type: Cigarette Years Smoked: 15 e-Cigarette/Vaping Use: Currently Using (daily) service: No Current occupational status: employed 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 Sexual orientation: Straight/Heterosexual Gender identity: Female Cognitive needs: No Hearing needs: No Vision needs: Yes (rx glasses) Female Reproductive History Menstrual Age of Menarche: 12 Review of Systems Const All systems reviewed & are unremarkable except as noted in HPI and below Reports as per HPI and Reports no additional complaints GI Reports no additional complaints Reports no additional complaints Physical Exam Vital Signs: Last Vital Signs BP 122/82 02/02/25 12:02 BMI result Body Mass Index 32.6 Assessment & Plan Assessment & Plan (1) Dysplasia of cervix, low grade (SEGUN 1): Comment: SEGUN 1 preceded by LSIL cannot exclude HGSIL Code(s): N87.0 - Mild cervical dysplasia Category: Medical Plan: Discussed with the patient the results the pathology, it sensitivity, specificity, false-positive and false-negative rate. Discussed with the patient options of treatment including Co testing in 12 months versus excisional procedure. All pros and cons, risks and benefits of each were discussed with the patient, the patient decided to proceed with Co testing in a. Instructions given to patient to schedule 1 year Co testing appointment. All questions answered, the patient verbalized understanding. Coding Level of Care Code Est Pt Level 3 (00367) Diagnoses Dysplasia of cervix, low grade (SEGUN 1) N87.0
[2025-02-02 12:02] VITALS: BP 122/82; BMI 32.6
== END 2025-02-02 12:18 | disposition home or self-care (01) ==
LOC: HO.HWS 11:53
PROVIDERS: PCP Physician Assistant; Visit Provider Obstetrics & Gynecology
DX: N87.0 Mild cervical dysplasia (principal)
CPT/HCPCS: 99213

== ENCOUNTER → 2025-02-27 14:30 | Outpatient (BNV) | payer OTHER, SELFPAY | PROVIDERS: PCP Physician Assistant; Visit Provider Radiology Body Imaging | DX: N63.11 Unspecified lump in the right breast, upper outer quadrant (principal) | CPT/HCPCS: 76642; 77061; 77065 ==

== ENCOUNTER 2025-02-27 14:32 | Outpatient (REF) | payer OTHER, SELFPAY ==
--- NOTE | ~2025-02-27 | MM_ITS ---
EXAMINATION(S): 1. MM DIAGNOSTIC DIGITAL BREAST TOMOSYNTHESIS, RIGHT 2. TARGETED ULTRASOUND OF THE RIGHT BREAST CLINICAL INFORMATION: Callback from screening for right breast focal asymmetry in the upper central breast middle depth. COMPARISON: Baseline screening mammogram on December 20, 2024 TECHNIQUE: Digital breast tomosynthesis is performed in full field ML 90 degrees along with computer-aided detection (CAD). Synthesized 2D images are generated from the tomosynthesis. Spot compression tomosynthesis were obtained. FINDINGS: BREAST COMPOSITION: There are scattered areas of fibroglandular density. RIGHT BREAST: Approximately 1.1 cm mass persists on today's images in the upper outer quadrant (spot MLO 44/63 and spot CC 43/58). Targeted ultrasound of the right breast was performed at the location of the mammographic finding. The survey shows a 1.0 x 0.6 x 0.9 cm hypodense oval solid mass at 11 o'clock position 4 cm from the nipple. Minimal peripheral vascularity demonstrated with color Doppler evaluation. MM/MM tomosynthesis added views R IMPRESSION: RIGHT BREAST: 1.0 x 0.6 x 0.9 cm oval solid mass at 11 o'clock position 4 cm from the nipple correlates with the mammographic finding. An ultrasound-guided needle core biopsy was recommended. Options were explained to the patient, who prefers having a 6-month follow-up imaging. At this point, a 6-month right breast ultrasound will be scheduled. ASSESSMENT: BI-RADS: Category 3: Probably benign RECOMMENDATION: 6 Month F/U Findings, recommendations and alternative options discussed with the patient at completion of the study. This patient's information was entered into a reminder system with a target due date for their next mammogram. Electronically signed by: Lisa Whitlock MD 02/27/2025 03:35 PM [facility]
== END 2025-02-27 14:33 | disposition home or self-care (01) ==
LOC: HO.MAMMO 14:32
PROVIDERS: PCP Physician Assistant; Visit Provider Physician Assistant
DX: N64.89 Other specified disorders of breast (principal)
CPT/HCPCS: 76642; 77061; 77065